=== PATIENT | male | born 1955 | race Caucasian/White ===

== ENCOUNTER 2018-03-20 11:28 | Inpatient (IN) | payer OTHER ==
[2018-03-20] MEDS ORDERED: SODIUM CHLORIDE 1,000 ML IV STA (12:15)
--- NOTE | 2018-03-20 12:15 | PDOC ---
Attending Attestation - Resident Resident Name: JannethNivia - ED Attending Attestation I have performed the following: I have examined & evaluated the patient, The case was reviewed & discussed with the resident, I agree w/resident's findings & plan, Exceptions are as noted - HPI HPI: 03/20/18 13:13 Patient is a 62M, with PMHx of HIV, depression who presents with multiple episodes of nausea and vomiting this morning. Patients family states that he was fine yesterday but became lethargic and altered today. Patient was diagnosed with HIV 5 years ago. He stopped taking his antiviral meds in 2016 because of his depression. He started taking it again in November but he has not taken his HAART medications for 21 days because it made him become nauseous. denies hx opportinusitic infections. Denies fevers, cp, sob, swelling, rashes, abd pain, LE edema, focal weakness/numbness. Allergies: none Denies EtOH, tobacco, drugs use - Physicial Exam PE: 03/20/18 13:13 agree with resident exam - Medical Decision Making 03/20/18 13:06 62yo M hx HIV (unknown CD4, VL, intermittently on HAART) presents to the ED with AMS and vomiting. Vitals wnl. Pt is AOx1 to name. Remainder of exam non focal. DDx includes but not limited to infecious process vs tox-metabolic vs neurologic. Labs, CTH, EKG, CXR, UA ordered. 03/20/18 18:27 Labs consistent with possible liver dysfunction Pt covered with zosyn CXR and CTAP show PNA CTAP also reveals cirrhosis with varices, and obstructing 6.5mm renal stone in ureter Uro c/s, will see pt Utox +ecstasy - this is likely cause of AMS Pt admitted for further mgmt
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
[2018-03-20] MEDS ORDERED: FOLIC ACID INJECTION - 1 MG, THIAMINE HCL 100 MG, MULTIVIT INJECTION ADULT 10 ML in SOD... IVPB ONE (12:38)
[2018-03-20 13:05] LABS: VENOUS PH 7.41 (7.32-7.42)
[2018-03-20 13:08] LABS: BASO % 3.4 % (0-2.0); EOS % 0.3 % (0-4.5); HEMATOCRIT 37.3 % (35.4-49); HEMOGLOBIN 13.4 GM/dL (11.7-16.9); LYMPH % 12.9 % (8-40); MCHC 35.8 g/dl (32.0-35.9); MEAN CELL VOLUME 100.5 fl (80-96); MONO % 3.1 % (3.8-10.2); NEUT % 80.3 % (42.8-82.8); PLATELET COUNT 82 K/MM3 (134-434); RBC 3.72 M/mm3 (4.00-5.60); RDW 13.4 % (11.9-15.9); WHITE BLOOD COUNT 7.3 K/mm3 (4.0-10.0)
[2018-03-20 13:18] LABS: INR 1.46 (0.82-1.09); PROTHROMBIN TIME (PATIENT) 16.5 SEC (9.7-13.0)
[2018-03-20 13:21] LABS: ACTIVATED PTT 38.8 SECONDS (26.9-34.4)
[2018-03-20 13:33] LABS: ALBUMIN 2.7 g/dl (3.4-5.0); ANION GAP 9 (8-16); BLOOD UREA NITROGEN 20 mg/dL (7-18); CALCIUM 8.1 mg/dL (8.5-10.1); CHLORIDE 109 mmol/L (98-107); CO2 23 mmol/L (21-32); CREATININE 0.8 mg/dL (0.7-1.3); GLUCOSE,RANDOM 110 mg/dL (74-106); PHOSPHOROUS 3.5 mg/dL (2.5-4.9); SGPT/ALT 55 U/L (12-78); SODIUM 141 mmol/L (136-145)
[2018-03-20 13:42] LABS: ALK PHOS 73 U/L (45-117); BILIRUBIN,TOTAL 3.5 mg/dL (0.2-1.0); TOT PROT 7.8 g/dl (6.4-8.2)
[2018-03-20 13:45] LABS: MAGNESIUM 1.7 mg/dL (1.8-2.4); POTASSIUM 4.4 mmol/L (3.5-5.1); SGOT/AST 66 U/L (15-37)
[2018-03-20 14:07] LABS: ACETAMINOPHEN <2.0 ug/mL; SALICYLATE <4.0 mg/dL
[2018-03-20] MEDS ORDERED: PIPERACILLIN/TAZOB 4.5 GM 4.5 GM in DEXTROSE 5%-WATER 100 ML IVPB ONE (14:25)
[2018-03-20] MEDS: VANCOMYCIN 1,500 MG in DEXTROSE 5%-WATER - 250 ML IVPB ONE ×2 (14:32→15:32)
[2018-03-20] MEDS ORDERED: PIPERACILLIN/TAZOB 4.5 GM 4.5 GM/100 ML BAG IVPB ONE (14:46)
[2018-03-20] MEDS ORDERED: LORazepam 2 MG/ML SDV VIAL ONE (14:58)
[2018-03-20] MEDS ORDERED: VANCOMYCIN 1,500 MG in DEXTROSE 5%-WATER - 500 ML IVPB ONE (15:00)
[2018-03-20 15:41] LABS: URINE APPEARANCE CLEAR; URINE BILIRUBIN NEGATIVE (<2.0 mg/dL); URINE COLOR DKYELLOW; URINE GLUCOSE (UA) NEGATIVE (NEGATIVE); URINE KETONE NEGATIVE (NEGATIVE); URINE LEUK ESTERASE NEGATIVE (NEGATIVE); URINE NITRITE NEGATIVE (NEGATIVE); URINE PROTEIN NEGATIVE (NEGATIVE); URINE UROBILINOGEN 4.0 E.U/dl mg/dL (0.2-1.0)
[2018-03-20 15:52] LABS: URINE BACTERIA RARE /hpf (NONE SEEN)
[2018-03-20 16:14] LABS: COCAINE, UR NEGATIVE ng/ml (CUTOFF=300); OPIATES, URI NEGATIVE ng/ml (CUTOFF=300); PHENCYCLIDINE,URINE NEGATIVE ng/ml (CUTOFF=25); URINE AMPHETAMINES NEGATIVE ng/ml (CUTOFF=500); URINE BARBITURATES NEGATIVE ng/ml (CUTOFF=200); URINE BENZODIAZEPINES NEGATIVE ng/ml (CUTOFF=200)
[2018-03-20 16:15] LABS: METHADONE, UR NEGATIVE ng/ml (CUTOFF=300)
[2018-03-20] MEDS ORDERED: PT OWN MED DRAWER 7, Y5N ONE (16:44)
--- NOTE | 2018-03-20 18:21 | PN ---
Teaching Attending Note Name of Resident: Sadi Segura ATTENDING PHYSICIAN STATEMENT I saw and evaluated the patient. I reviewed the resident's note and discussed the case with the resident. I agree with the resident's findings and plan as documented. SUBJECTIVE: Patient is a 62yo male with PMHx of HIV, depression on Wellbutryn who presents to ED with having nausea and vomiting this morning. A sper patient's sister , she cooked last night and they al ate the same food without any complications with the rest. Patient was diagnosed with HIV (5yrs ago). As per family patient became lethargic and altered since this morning. He stopped taking his antiviral meds in 2016 because of his depression. He started taking it again in November but he has not taken his HAART medications for 21 days because it made him become nauseous. Asper sister patient became agitated and was given an anxiolytic while in ED. OBJECTIVE: Vital Signs Temperature 98.6 F 03/20/18 17:15 Pulse Rate 82 03/20/18 17:15 Respiratory Rate 16 03/20/18 17:15 Blood Pressure 149/108 03/20/18 17:15 O2 Sat by Pulse Oximetry (%) 97 03/20/18 17:15 CBCD WBC 7.3 K/mm3 (4.0-10.0) 03/20/18 12:21 RBC 3.72 M/mm3 (4.00-5.60) L 03/20/18 12:21 Hgb 13.4 GM/dL (11.7-16.9) 03/20/18 12:21 Hct 37.3 % (35.4-49) 03/20/18 12:21 MCV 100.5 fl (80-96) H 03/20/18 12:21 MCHC 35.8 g/dl (32.0-35.9) 03/20/18 12:21 RDW 13.4 % (11.9-15.9) 03/20/18 12:21 Plt Count 82 K/MM3 (134-434) L 03/20/18 12:21 MPV 8.0 fl (7.5-11.1) 03/20/18 12:21 CMP Sodium 141 mmol/L (136-145) 03/20/18 12:21 Potassium 4.4 mmol/L (3.5-5.1) 03/20/18 12:21 Chloride 109 mmol/L (98-107) H 03/20/18 12:21 Carbon Dioxide 23 mmol/L (21-32) 03/20/18 12:21 Anion Gap 9 (8-16) 03/20/18 12:21 BUN 20 mg/dL (7-18) H 03/20/18 12:21 Creatinine 0.8 mg/dL (0.7-1.3) 03/20/18 12:21 Creat Clearance w eGFR > 60 (>60) 03/20/18 12:21 Random Glucose 110 mg/dL (74-106) H 03/20/18 12:21 Calcium 8.1 mg/dL (8.5-10.1) L 03/20/18 12:21 Total Bilirubin 3.5 mg/dL (0.2-1.0) H 03/20/18 12:21 AST 66 U/L (15-37) H 03/20/18 12:21 ALT 55 U/L (12-78) 03/20/18 12:21 Alkaline Phosphatase 73 U/L (45-117) 03/20/18 12:21 Total Protein 7.8 g/dl (6.4-8.2) 03/20/18 12:21 Albumin 2.7 g/dl (3.4-5.0) L 03/20/18 12:21 CARDIAC ENZYMES Creatine Kinase 107 IU/L (39-308) 03/20/18 12:21 Troponin I < 0.02 ng/ml (0.00-0.05) 03/20/18 13:00 Urine Test Results Urine Color Dkyellow 03/20/18 15:20 Urine Appearance Clear 03/20/18 15:20 Urine pH 7.0 (5.0-8.0) 03/20/18 15:20 Ur Specific [place] 1.013 (1.001-1.035) 03/20/18 15:20 Urine Protein Negative (NEGATIVE) 03/20/18 15:20 Urine Glucose (UA) Negative (NEGATIVE) 03/20/18 15:20 Urine Ketones Negative (NEGATIVE) 03/20/18 15:20 Urine Blood 1+ (NEGATIVE) H 03/20/18 15:20 Urine Nitrite Negative (NEGATIVE) 03/20/18 15:20 Urine Bilirubin Negative (<2.0 mg/dL) 03/20/18 15:20 Ur Leukocyte Esterase Negative (NEGATIVE) 03/20/18 15:20 Urine Bacteria Rare /hpf (NONE SEEN) 03/20/18 15:20 Laboratory Tests 03/20/18 03/20/18 13:00 15:20 Opiates Screen Negative Methadone Screen Negative Barbiturate Screen Negative Phencyclidine Screen Negative Ur Amphetamines Screen Negative MDMA (Ecstasy) Screen Positive Benzodiazepines Screen Negative Cocaine Screen Negative U Marijuana (THC) Screen Negative Alcohol, Quantitative < 5.0 PE: per resident's note CT of abdomen and pelvis: consolidative opacity in the left lung base, surrounding groundglass attenuation. positive for gallstones. 6.5mm calculus in the proximal right ureter with moderate right hydronephrosis and distention of the renal pelvis. ASSESSMENT AND PLAN: Patient is a 62yo M hx HIV (unknown CD4, VL, intermittently on HAART) presents to the ED with AMS and vomiting. # Acute change of mental status: Id consult , neuro consult , repeat lactic acid level, ammonia level # Left lung opacity: ABx was given earlier today, will get ID to see the patient , patient received vanco and zosyn in ED. # Calculus of 6.5mm , most likly need lithotripsy, was consulted
--- NOTE | 2018-03-20 18:23 | HP ---
CHIEF COMPLAINT: N/V and AMS PCP: Dr. Camille Cotton [phone] HISTORY OF PRESENT ILLNESS: 62yo M with history of HIV (unknown CD4 count; suspected low) and Depression (psychiatric hospitalization at [facility] 3 years ago) who presents to the ED with AMS. HPI is limited due to pt's presentation, however history was taken from brother and sister. Pt was in his normal state of health the afternoon of at his sister's and [id number] house where he ate a dinner. Pt went to bed per normal and upon waking up 03/20/18 he was found to be vomiting and nauseous. Pt's family states he had copious amounts of vomiting first NB/NB and then turning into bilious nonbloody vomit. Pt at this point was of normal mentation, however around noon today he started to become altered and oriented only to self. When pt was helped to the car, his family states he was mostly flaccid and did not exhibit any signs of rigidity. Pt's family states he did not express any signs of abdominal pain, chest pain, diarrhea/constipation, fevers/chills. When pt arrived in the ER he was agitated and willing to punch both medical staff and his family. He received 1mg Ativan in the ER which calmed him down. Currently, pt is alert to tactile stimulus, comfortable sleeping in bed. ER course was notable for: (1) MDMA + in UTox (2) Head CT negative for acute pathology (3) CXR - L cardiac silhouetted density (4) Abdominal CT - LLL airbronchograms suggestive of PNA, thickened GB wall with cholelithiasis (no evidence of cholecystitis), 6.5mm obstructing nephrolithiasis with hydronephrosis (5) NS 1L (6) LA 4.1 (7) Contacted Dr. Butler Recent Travel: None PAST MEDICAL HISTORY: Depression (Requiring psychiatric hospitalization s/p suicide attempt 3 years ago; hospitalized at [facility]) HIV (Stopped taking antivirals in 2016 due to depression; restarted HAART November however noncompliant for past 21 days due to n/v) PAST SURGICAL HISTORY: None Social History: Smoking: None Alcohol: Occasional Drugs: (per family none; however MDMA found in system) Lives with sister and [id number]; independent in ADL's; walks without assistance Family History: Deferred Allergies No Known Allergies Allergy (Verified 03/20/18 11:41) HOME MEDICATIONS: Home Medications Medication Instructions Recorded Bupropion HCl [Bupropion Xl] 150 mg PO DAILY 03/20/18 REVIEW OF SYSTEMS *incomplete due to pt's limited HPI; obtained based on family report* CONSTITUTIONAL: Present: loss of appetite, weight change (12lb in one month) Absent: fever, chills, diaphoresis, malaise HEENT: Absent: rhinorrhea, nasal congestion, throat pain, ear pain CARDIOVASCULAR: Absent: chest pain, syncope, palpitations RESPIRATORY: Absent: cough, shortness of breath, dyspnea with exertion, wheezing GASTROINTESTINAL: Present: nausea, vomiting, Absent: abdominal pain, abdominal distension, diarrhea, constipation, MUSCULOSKELETAL: Absent: myalgia, arthralgia, joint swelling, back pain, muscle rigidity SKIN: Absent: rash, itching, pallor NEUROLOGIC: Present: Mental Status changes Absent: headache, dizziness, unsteady gait, seizure, bladder or bowel incontinence PSYCHIATRIC: Present: Depression Absent: anxiety, *current* suicidal or homicidal ideation PHYSICAL EXAMINATION Vital Signs - 24 hr 03/20/18 03/20/18 03/20/18 11:41 12:56 17:15 Temperature 98.3 F 98.6 F Pulse Rate 80 Pulse Rate [ 82 Left Apical] Respiratory 20 16 Rate Blood Pressure 149/90 Blood Pressure 149/108 [Left Arm] O2 Sat by Pulse 97 97 Oximetry (%) *Limited due to pt's presentation* GENERAL: NAD, sleepy, alert to tactile stimulus, oriented to self and slighly to place (knows he's in hospital, but not which hospital) HEENT: NC/AT, ROMINA, sclera anicteric without injections, MMM (seen when pt yawning) NECK: Soft, no JVD LUNGS: Coarse diminished breath sounds L base > R base. No wheezes, and no crackles. No accessory muscle use. On RA 97% HEART: RRR, normal S1 and S2 without murmur ABDOMEN: Soft, not distended, normoactive bowel sounds, no agitation to palpation, no guarding. No hepatomegaly by percussion MUSCULOSKELETAL: Freely movable limbs without rigidigy of joints. No bony deformities or tenderness. Could not assess CVA tenderness EXTREMITIES: 2+ DP pulses, warm, No peripheral edema. NEUROLOGICAL: Could not assess PSYCHIATRIC: Could not assess. SKIN: Warm, dry, no rashes or lesions noted Laboratory Results - last 24 hr 03/20/18 03/20/18 03/20/18 12:21 12:21 12:21 WBC 7.3 RBC 3.72 L Hgb 13.4 Hct 37.3 MCV 100.5 H MCH 36.0 H MCHC 35.8 RDW 13.4 Plt Count 82 L MPV 8.0 Absolute Neuts (auto) 5.8 Neutrophils % 80.3 Lymphocytes % 12.9 Monocytes % 3.1 L Eosinophils % 0.3 Basophils % 3.4 H Nucleated RBC % 0 PT with INR 16.50 H INR 1.46 H PTT (Actin FS) 38.8 H VBG pH POC VBG pCO2 POC VBG pO2 Mixed VBG HCO3 Sodium 141 Potassium 4.4 Chloride 109 H Carbon Dioxide 23 Anion Gap 9 BUN 20 H Creatinine 0.8 Creat Clearance w eGFR > 60 Random Glucose 110 H Lactic Acid Calcium 8.1 L Phosphorus 3.5 Magnesium 1.7 L Total Bilirubin 3.5 H AST 66 H ALT 55 Alkaline Phosphatase 73 Creatine Kinase 107 CK-MB (CK-2) 2.15 Troponin I Total Protein 7.8 Albumin 2.7 L Vitamin B12 TSH 1.88 Urine Color Urine Appearance Urine pH Ur Specific [place] Urine Protein Urine Glucose (UA) Urine Ketones Urine Blood Urine Nitrite Urine Bilirubin Urine Urobilinogen Ur Leukocyte Esterase Urine WBC (Auto) Urine RBC (Auto) Urine Bacteria Salicylates Opiates Screen Methadone Screen Acetaminophen Barbiturate Screen Phencyclidine Screen Ur Amphetamines Screen MDMA (Ecstasy) Screen Benzodiazepines Screen Cocaine Screen U Marijuana (THC) Screen Alcohol, Quantitative RPR Titer Blood Type Antibody Screen 03/20/18 03/20/18 03/20/18 12:21 12:36 13:00 WBC RBC Hgb Hct MCV MCH MCHC RDW Plt Count MPV Absolute Neuts (auto) Neutrophils % Lymphocytes % Monocytes % Eosinophils % Basophils % Nucleated RBC % PT with INR INR PTT (Actin FS) VBG pH 7.41 POC VBG pCO2 37.0 L POC VBG pO2 30.0 Mixed VBG HCO3 23.0 Sodium Potassium Chloride Carbon Dioxide Anion Gap BUN Creatinine Creat Clearance w eGFR Random Glucose Lactic Acid 4.1 H* Calcium Phosphorus Magnesium Total Bilirubin AST ALT Alkaline Phosphatase Creatine Kinase CK-MB (CK-2) Troponin I Total Protein Albumin Vitamin B12 TSH Urine Color Urine Appearance Urine pH Ur Specific [place] Urine Protein Urine Glucose (UA) Urine Ketones Urine Blood Urine Nitrite Urine Bilirubin Urine Urobilinogen Ur Leukocyte Esterase Urine WBC (Auto) Urine RBC (Auto) Urine Bacteria Salicylates Opiates Screen Methadone Screen Acetaminophen Barbiturate Screen Phencyclidine Screen Ur Amphetamines Screen MDMA (Ecstasy) Screen Benzodiazepines Screen Cocaine Screen U Marijuana (THC) Screen Alcohol, Quantitative RPR Titer Blood Type A POSITIVE Antibody Screen Negative 03/20/18 03/20/18 03/20/18 13:00 13:00 13:00 WBC RBC Hgb Hct MCV MCH MCHC RDW Plt Count MPV Absolute Neuts (auto) Neutrophils % Lymphocytes % Monocytes % Eosinophils % Basophils % Nucleated RBC % PT with INR INR PTT (Actin FS) VBG pH POC VBG pCO2 POC VBG pO2 Mixed VBG HCO3 Sodium Potassium Chloride Carbon Dioxide Anion Gap BUN Creatinine Creat Clearance w eGFR Random Glucose Lactic Acid Calcium Phosphorus Magnesium Total Bilirubin AST ALT Alkaline Phosphatase Creatine Kinase CK-MB (CK-2) Troponin I < 0.02 Total Protein Albumin Vitamin B12 1171 H TSH Urine Color Urine Appearance Urine pH Ur Specific [place] Urine Protein Urine Glucose (UA) Urine Ketones Urine Blood Urine Nitrite Urine Bilirubin Urine Urobilinogen Ur Leukocyte Esterase Urine WBC (Auto) Urine RBC (Auto) Urine Bacteria Salicylates <4.0 Opiates Screen Methadone Screen Acetaminophen <2.0 Barbiturate Screen Phencyclidine Screen Ur Amphetamines Screen MDMA (Ecstasy) Screen Benzodiazepines Screen Cocaine Screen U Marijuana (THC) Screen Alcohol, Quantitative < 5.0 RPR Titer Nonreactive Blood Type Antibody Screen 03/20/18 03/20/18 15:20 15:20 WBC RBC Hgb Hct MCV MCH MCHC RDW Plt Count MPV Absolute Neuts (auto) Neutrophils % Lymphocytes % Monocytes % Eosinophils % Basophils % Nucleated RBC % PT with INR INR PTT (Actin FS) VBG pH POC VBG pCO2 POC VBG pO2 Mixed VBG HCO3 Sodium Potassium Chloride Carbon Dioxide Anion Gap BUN Creatinine Creat Clearance w eGFR Random Glucose Lactic Acid Calcium Phosphorus Magnesium Total Bilirubin AST ALT Alkaline Phosphatase Creatine Kinase CK-MB (CK-2) Troponin I Total Protein Albumin Vitamin B12 TSH Urine Color Dkyellow Urine Appearance Clear Urine pH 7.0 Ur Specific [place] 1.013 Urine Protein Negative Urine Glucose (UA) Negative Urine Ketones Negative Urine Blood 1+ H Urine Nitrite Negative Urine Bilirubin Negative Urine Urobilinogen 4.0 e.u/dl Ur Leukocyte Esterase Negative Urine WBC (Auto) 2 Urine RBC (Auto) 28 Urine Bacteria Rare Salicylates Opiates Screen Negative Methadone Screen Negative Acetaminophen Barbiturate Screen Negative Phencyclidine Screen Negative Ur Amphetamines Screen Negative MDMA (Ecstasy) Screen Positive Benzodiazepines Screen Negative Cocaine Screen Negative U Marijuana (THC) Screen Negative Alcohol, Quantitative RPR Titer Blood Type Antibody Screen ASSESSMENT/PLAN: 1) AMS --likely secondary to MDMA intoxication --s/p Ativan 1mg due to agitation in ER --Low suspicion for serotonin syndrome despite MDMA and Buproprion use --Monitor temperature --Aspiration precautions: HOB elevated 30* --Head CT negative in ER 2) LLL PNA --Possibly aspiration etiology --WBC WNL; no fevers at this point --Blood cultures and urine cultures were sent in ER?; f/u --S/P ER vancomycin 1500mg and Zosyn 4.5gm once --ID consult --Might consider covering with Bactrim in lieu of HIV 3) HIV --Unknown CD4 count, but suspected low with unknown viral count --CD4 count ordered --As above ID consult; pending CD4 count may have to cover for PCP PNA ( Bactrim) --Pt in 2017 stopped HAART therapy 4) Obstructing Nephrolithiasis with hydroneprhosis --Confirmed with CT scan --Dr. Butler consulted --Will likely need stent; ? lithotripsy --IVF - NS@100cc/hr --Holding pain control as pt is altered at the moment 5) Cholithiasis w/o cholecystectomy --Seen incidentally on CT --Monitor LFT's --Will most likely recommend elective procedure once acute conditions are resolved; f/u surgery outpatient 6) Thrombocytopenia --Likely resultant from MDMA use --Monitor --No active signs of bleeding 7) Hyperbilirubinemia --Fractionate with AM labs --Could be elevated due to hepatoxicity from MDMA use --Monitor --No evidence of hemolysis or anemia 8) QTc Prolongation --QTc 507 --Avoid QTc prolonging medications FEN: Fluids: NS@100cc/hr Electrolyte abnormalities: HypoMg (Replete with MgSulfate 1gm) Nutrition: NPO while altered PPX: DVT - Heparin SQ TID; monitor platelets Dispo: Med-surg admit Case discussed with Dr. Branch and Dr. Waylon Segura, DO - PGY-1 Visit type - Emergency Visit Emergency Visit: Yes ED Registration Date: 03/20/18 Care time: The patient presented to the Emergency Department on the above date and was hospitalized for further evaluation of their emergent condition. - New Patient This patient is new to me today: Yes Date on this admission: 03/20/18 - Critical Care Critical Care patient: No Hospitalist Screening - Colonoscopy Questionnaire Colonoscopy Questionnaire: Colonoscopy Questionnaire - Patient: 50 - 75 years old and never had a screening colonoscopy: Unknown History of colon or rectal polyps, or CA: Unknown History of IBD, Crohn's disease or UC: Unknown History of abdominal radiation therapy as a child: Unknown - Relative: 1 with colon or rectal CA, or polyps at age 60 or younger: Unknown Colon or rectal CA diagnosed at age 45 or younger: Unknown Multiple relatives with colon or rectal CA: Unknown - Outcome: Screening Result: Negative Screen
[2018-03-20] MEDS: SODIUM CHLORIDE 1,000 ML IV SCH (18:37)
[2018-03-20] MEDS ORDERED: MAGNESIUM SULF 50% (8.12 MEQ/2 ML-1 GM VIAL) IVPB ONE (19:02)
[2018-03-20] MEDS: MAGNESIUM 1GM/D5W - 1 GM/100 ML IVPB IVPB ONE ×2 (19:30→21:38)
[2018-03-20 22:29] VITALS: BMI 23.8
[2018-03-20] MEDS: THIAMINE HCL 200 MG/2 ML VIAL IVPB SCH (22:40)
[2018-03-21] MEDS: HEPARIN NA (PORCINE) 5,000 UNITS/ML 1ML VIAL SQ SCH ×3 (05:26→21:24)
--- NOTE | 2018-03-21 07:09 | PN ---
Progress Note (short form) - Note Progress Note: ID Difficult history most of which is obtained from chart as patient lethargic and has difficulty waking up Brought from home with history of being HIV positive apparently vomiting with altered mental status and found to have positive tox screen Ecstasy. Given Ativan now lethargic munbles words He has been afebrile CT head neg for acute intracranial pathology. CT abd gall stones kidney stone with hydronephrosis evidence for cirrhosis and incidental finding of LLL infiltrate He is not hypoxic febrile or SOB and we do not know his HIV status re ART or T cells. Selected Entries 03/20/18 22:22 Temperature 98.6 F Pulse Rate 82 Respiratory 18 Rate Blood Pressure 138/68 Weight 161 lb 3 oz Neck Supple Lung Clear Cor S1 S2 RR Abd Soft nontender Ext No CCE Neuro Grossly nonfocal Microbiology Laboratory Tests 03/20/18 03/20/18 03/20/18 12:21 12:21 12:21 WBC 7.3 Hgb 13.4 Hct 37.3 Plt Count 82 L Neutrophils % 80.3 Lymphocytes % 12.9 Monocytes % 3.1 L Basophils % 3.4 H INR 1.46 H BUN 20 H Creatinine 0.8 Lactic Acid Magnesium 1.7 L Total Bilirubin 3.5 H AST 66 H Albumin 2.7 L MDMA (Ecstasy) Screen MDMA & Metabolite Absolute CD4 Bessie RPR Titer 03/20/18 03/20/18 03/20/18 13:00 13:00 15:20 WBC Hgb Hct Plt Count Neutrophils % Lymphocytes % Monocytes % Basophils % INR BUN Creatinine Lactic Acid Magnesium Total Bilirubin AST Albumin MDMA (Ecstasy) Screen Positive MDMA & Metabolite Pending Absolute CD4 Bessie RPR Titer Nonreactive 03/20/18 03/20/18 03/20/18 18:13 20:30 23:00 WBC Hgb Hct Plt Count Neutrophils % Lymphocytes % Monocytes % Basophils % INR BUN Creatinine Lactic Acid 3.6 H* 2.3 H* Magnesium Total Bilirubin AST Albumin MDMA (Ecstasy) Screen MDMA & Metabolite Absolute CD4 Bessie Pending RPR Titer Assessment Alteration of mental status drug use MDMA Metabolic encephalopathy with elevated ammonia level HIV infection Details lacking re ART T cells history Cirrhosis ? alcoholic Hep C Pneumonia Less likely Pneumocystis Not hypoxic not bilateral typical ground glass infiltrates agree aspiration possible Kidney stone Plan Panculture LGA T cells Treat ammonia level Hep C Ab Urology evaluation Unasyn 1.5grs q 6 H Brandi CLANCY Problem List - Problems (1) Cirrhosis Code(s): K74.60 - UNSPECIFIED CIRRHOSIS OF LIVER Qualifiers: Hepatic cirrhosis type: unspecified hepatic cirrhosis Ascites presence: unspecified Qualified Code(s): K74.60 - Unspecified cirrhosis of liver (2) HIV (human immunodeficiency virus infection) Code(s): B20 - HUMAN IMMUNODEFICIENCY VIRUS [HIV] DISEASE (3) Left lower lobe pneumonia Code(s): J18.1 - LOBAR PNEUMONIA, UNSPECIFIED ORGANISM Qualifiers: Pneumonia type: due to unspecified organism Qualified Code(s): J18.1 - Lobar pneumonia, unspecified organism (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
[2018-03-21] MEDS ORDERED: LACTULOSE 20 GM/30 ML UDC (FOR ORAL USE ONLY) PO PRN (07:18)
[2018-03-21 07:51] LABS: CHLORIDE 112 mmol/L (98-107); POTASSIUM 3.4 mmol/L (3.5-5.1); SODIUM 143 mmol/L (136-145)
[2018-03-21 08:01] LABS: BASO % 0.5 % (0-2.0); EOS % 1.7 % (0-4.5); HEMATOCRIT 31.4 % (35.4-49); HEMOGLOBIN 11.5 GM/dL (11.7-16.9); LYMPH % 34.3 % (8-40); MCH 36.3 pg (25.7-33.7); MCHC 36.5 g/dl (32.0-35.9); MEAN CELL VOLUME 99.3 fl (80-96); MEAN PLT VOLUME 8.2 fl (7.5-11.1); MONO % 5.2 % (3.8-10.2); NEUT % 58.3 % (42.8-82.8); PLATELET COUNT 81 K/MM3 (134-434); RBC 3.16 M/mm3 (4.00-5.60); RDW 13.3 % (11.9-15.9)
[2018-03-21 08:04] LABS: ALBUMIN 2.4 g/dl (3.4-5.0); ALK PHOS 63 U/L (45-117); ANION GAP 9 (8-16); BILIRUBIN,TOTAL 3.4 mg/dL (0.2-1.0); BLOOD UREA NITROGEN 13 mg/dL (7-18); CALCIUM 7.6 mg/dL (8.5-10.1); CO2 22 mmol/L (21-32); CREATININE 0.6 mg/dL (0.7-1.3); GLUCOSE,RANDOM 95 mg/dL (74-106); MAGNESIUM 1.7 mg/dL (1.8-2.4); PHOSPHOROUS 2.7 mg/dL (2.5-4.9); SGOT/AST 44 U/L (15-37); SGPT/ALT 44 U/L (12-78); TOT PROT 6.8 g/dl (6.4-8.2)
[2018-03-21] MEDS ORDERED: AMPICILLIN NA/SULBACTAM NA 1.5 GM VIAL ONE ×3 (08:07→21:19)
[2018-03-21] MEDS ORDERED: SODIUM CHLORIDE 100 ML IVPB ONE ×3 (08:07→21:20)
[2018-03-21] MEDS: AMPICILLIN NA/SULBACTAM NA 1.5 GM in SODIUM CHLORIDE 100 ML IVPB SCH ×3 (08:17→21:24)
--- NOTE | 2018-03-21 08:49 | EKG ---
Test Reason : Blood Pressure : / mmHG Vent. Rate : 070 BPM Atrial Rate : 070 BPM P-R Int : 160 ms QRS Dur : 092 ms QT Int : 470 ms P-R-T Axes : 073 063 076 degrees QTc Int : 507 ms NORMAL SINUS RHYTHM PROLONGED QT ABNORMAL ECG NO PREVIOUS ECGS AVAILABLE Confirmed by LASHON ROSARIO MD ([id number]) on 03/21/2018 8:49:25 AM Referred By: Confirmed By:LASHON ROSARIO MD
[2018-03-21] MEDS ORDERED: PNEUMOC 13-VAL CONJ-DIP CRM/PF 0.5 ML DISP.SYRIN IM ONE (10:00)
--- NOTE | 2018-03-21 10:22 | CON.GU ---
Consult Consult Specialty:: Referred by:: ED Reason for Consultation:: ureteral calculus - History of Present Illness Chief Complaint: ureteral calculus History of Present Illness: 62 year old male with altered mental status incidentally found to have a 6mm ureteral stone. he has no related complaints. - History Source History Provided By: Medical Record Limitations to Obtaining History: Intoxication - Past Medical History Renal/: No: Renal Failure, Renal Inusuff, BPH, Cancer, Hematuria, Hemodialysis , Neurogenic Bladder, Renal Calculi, UTI, Other - Smoking History Smoking history: Never smoked Home Medications - Allergies Allergies/Adverse Reactions: Allergies Allergy/AdvReac Type Severity Reaction Status Date / Time No Known Allergies Allergy Verified 03/20/18 11:41 - Home Medications Home Medications: Ambulatory Orders Bupropion HCl [Bupropion Xl] 150 mg PO DAILY 03/20/18 Review of Systems - Review of Systems Genitourinary: reports: No Symptoms Physical Exam- Vital Signs: Vital Signs Temperature 98.2 F 03/21/18 09:00 Pulse Rate 68 03/21/18 09:00 Respiratory Rate 18 03/21/18 09:00 Blood Pressure 116/68 03/21/18 09:00 O2 Sat by Pulse Oximetry (%) 97 03/20/18 17:15 Renal/: No: CVA Tenderness - Left, CVA Tenderness - Right Labs: CBC, BMP 03/21/18 06:00 03/21/18 06:00 Imaging - Results Cat Scan: Report Reviewed Problem List - Problems (1) Right ureteral calculus Assessment/Plan: asymptomatic stone. Would give hydration and flomax. No infection. Code(s): N20.1 - CALCULUS OF URETER
[2018-03-21] MEDS ORDERED: MAGNESIUM SULF 50% (8.12 MEQ/2 ML-1 GM VIAL) IVPB ONE (12:47)
--- NOTE | 2018-03-21 12:48 | PN ---
Physical Exam: SUBJECTIVE: This morning pt sat up for blood draw by product marketing intern and grazed his head against the side rail while laying back down. Night team attended and being that it was witnessed without any signs of trauma and only on SQ heparin for ppx no CT was ordered. Today pt is more alert compared to yesterday however is only oriented to self. He has incomprehensible speech OBJECTIVE: Vital Signs Period Temp Pulse Resp BP Sys/Low Pulse Ox Last 24 Hr 98.2 F-98.8 F 68-82 16-18 116-149/68-108 97 *Limited due to pt's presentation* GENERAL: NAD, sleepy, alert to verbal stimulus, oriented to self and states yes to place, but has incomprehensible speech when answering "where?" HEENT: NC/AT, ROMINA, sclera anicteric without injections, MMM NECK: Soft, no JVD LUNGS: Coarse diminished breath sounds b/l base. No wheezes, and no crackles. No accessory muscle use. On RA 97% HEART: RRR, normal S1 and S2 without murmur ABDOMEN: Soft, not distended, normoactive bowel sounds, no agitation to palpation, no guarding. No hepatomegaly by percussion MUSCULOSKELETAL: Freely movable limbs without rigidigy of joints. EXTREMITIES: 2+ DP pulses, warm, No peripheral edema. NEUROLOGICAL: Could not assess PSYCHIATRIC: Could not assess. SKIN: Warm, dry, no rashes or lesions noted Laboratory Results - last 24 hr 03/20/18 03/20/18 03/20/18 12:21 12:21 12:21 WBC 7.3 RBC 3.72 L Hgb 13.4 Hct 37.3 MCV 100.5 H MCH 36.0 H MCHC 35.8 RDW 13.4 Plt Count 82 L MPV 8.0 Absolute Neuts (auto) 5.8 Neutrophils % 80.3 Lymphocytes % 12.9 Monocytes % 3.1 L Eosinophils % 0.3 Basophils % 3.4 H Nucleated RBC % 0 PT with INR 16.50 H INR 1.46 H PTT (Actin FS) 38.8 H VBG pH POC VBG pCO2 POC VBG pO2 Mixed VBG HCO3 Sodium 141 Potassium 4.4 Chloride 109 H Carbon Dioxide 23 Anion Gap 9 BUN 20 H Creatinine 0.8 Creat Clearance w eGFR > 60 Random Glucose 110 H Lactic Acid Calcium 8.1 L Phosphorus 3.5 Magnesium 1.7 L Total Bilirubin 3.5 H AST 66 H ALT 55 Alkaline Phosphatase 73 Ammonia Creatine Kinase 107 CK-MB (CK-2) 2.15 Troponin I Total Protein 7.8 Albumin 2.7 L Vitamin B12 TSH 1.88 Urine Color Urine Appearance Urine pH Ur Specific [place] Urine Protein Urine Glucose (UA) Urine Ketones Urine Blood Urine Nitrite Urine Bilirubin Urine Urobilinogen Ur Leukocyte Esterase Urine WBC (Auto) Urine RBC (Auto) Urine Bacteria Salicylates Opiates Screen Methadone Screen Acetaminophen Barbiturate Screen Phencyclidine Screen Ur Amphetamines Screen MDMA (Ecstasy) Screen Benzodiazepines Screen Cocaine Screen U Marijuana (THC) Screen Alcohol, Quantitative RPR Titer Blood Type Antibody Screen 03/20/18 03/20/18 03/20/18 12:21 12:36 13:00 WBC RBC Hgb Hct MCV MCH MCHC RDW Plt Count MPV Absolute Neuts (auto) Neutrophils % Lymphocytes % Monocytes % Eosinophils % Basophils % Nucleated RBC % PT with INR INR PTT (Actin FS) VBG pH 7.41 POC VBG pCO2 37.0 L POC VBG pO2 30.0 Mixed VBG HCO3 23.0 Sodium Potassium Chloride Carbon Dioxide Anion Gap BUN Creatinine Creat Clearance w eGFR Random Glucose Lactic Acid 4.1 H* Calcium Phosphorus Magnesium Total Bilirubin AST ALT Alkaline Phosphatase Ammonia Creatine Kinase CK-MB (CK-2) Troponin I Total Protein Albumin Vitamin B12 TSH Urine Color Urine Appearance Urine pH Ur Specific [place] Urine Protein Urine Glucose (UA) Urine Ketones Urine Blood Urine Nitrite Urine Bilirubin Urine Urobilinogen Ur Leukocyte Esterase Urine WBC (Auto) Urine RBC (Auto) Urine Bacteria Salicylates Opiates Screen Methadone Screen Acetaminophen Barbiturate Screen Phencyclidine Screen Ur Amphetamines Screen MDMA (Ecstasy) Screen Benzodiazepines Screen Cocaine Screen U Marijuana (THC) Screen Alcohol, Quantitative RPR Titer Blood Type A POSITIVE Antibody Screen Negative 03/20/18 03/20/18 03/20/18 13:00 13:00 13:00 WBC RBC Hgb Hct MCV MCH MCHC RDW Plt Count MPV Absolute Neuts (auto) Neutrophils % Lymphocytes % Monocytes % Eosinophils % Basophils % Nucleated RBC % PT with INR INR PTT (Actin FS) VBG pH POC VBG pCO2 POC VBG pO2 Mixed VBG HCO3 Sodium Potassium Chloride Carbon Dioxide Anion Gap BUN Creatinine Creat Clearance w eGFR Random Glucose Lactic Acid Calcium Phosphorus Magnesium Total Bilirubin AST ALT Alkaline Phosphatase Ammonia Creatine Kinase CK-MB (CK-2) Troponin I < 0.02 Total Protein Albumin Vitamin B12 1171 H TSH Urine Color Urine Appearance Urine pH Ur Specific [place] Urine Protein Urine Glucose (UA) Urine Ketones Urine Blood Urine Nitrite Urine Bilirubin Urine Urobilinogen Ur Leukocyte Esterase Urine WBC (Auto) Urine RBC (Auto) Urine Bacteria Salicylates <4.0 Opiates Screen Methadone Screen Acetaminophen <2.0 Barbiturate Screen Phencyclidine Screen Ur Amphetamines Screen MDMA (Ecstasy) Screen Benzodiazepines Screen Cocaine Screen U Marijuana (THC) Screen Alcohol, Quantitative < 5.0 RPR Titer Nonreactive Blood Type Antibody Screen 03/20/18 03/20/18 03/20/18 15:20 15:20 18:13 WBC RBC Hgb Hct MCV MCH MCHC RDW Plt Count MPV Absolute Neuts (auto) Neutrophils % Lymphocytes % Monocytes % Eosinophils % Basophils % Nucleated RBC % PT with INR INR PTT (Actin FS) VBG pH POC VBG pCO2 POC VBG pO2 Mixed VBG HCO3 Sodium Potassium Chloride Carbon Dioxide Anion Gap BUN Creatinine Creat Clearance w eGFR Random Glucose Lactic Acid 3.6 H* Calcium Phosphorus Magnesium Total Bilirubin AST ALT Alkaline Phosphatase Ammonia Creatine Kinase CK-MB (CK-2) Troponin I Total Protein Albumin Vitamin B12 TSH Urine Color Dkyellow Urine Appearance Clear Urine pH 7.0 Ur Specific [place] 1.013 Urine Protein Negative Urine Glucose (UA) Negative Urine Ketones Negative Urine Blood 1+ H Urine Nitrite Negative Urine Bilirubin Negative Urine Urobilinogen 4.0 e.u/dl Ur Leukocyte Esterase Negative Urine WBC (Auto) 2 Urine RBC (Auto) 28 Urine Bacteria Rare Salicylates Opiates Screen Negative Methadone Screen Negative Acetaminophen Barbiturate Screen Negative Phencyclidine Screen Negative Ur Amphetamines Screen Negative MDMA (Ecstasy) Screen Positive Benzodiazepines Screen Negative Cocaine Screen Negative U Marijuana (THC) Screen Negative Alcohol, Quantitative RPR Titer Blood Type Antibody Screen 03/20/18 03/20/18 03/20/18 20:30 21:37 23:00 WBC RBC Hgb Hct MCV MCH MCHC RDW Plt Count MPV Absolute Neuts (auto) Neutrophils % Lymphocytes % Monocytes % Eosinophils % Basophils % Nucleated RBC % PT with INR INR PTT (Actin FS) VBG pH POC VBG pCO2 POC VBG pO2 Mixed VBG HCO3 Sodium Potassium Chloride Carbon Dioxide Anion Gap BUN Creatinine Creat Clearance w eGFR Random Glucose Lactic Acid 3.0 H* 2.3 H* Calcium Phosphorus Magnesium Total Bilirubin AST ALT Alkaline Phosphatase Ammonia 141.8 H Creatine Kinase CK-MB (CK-2) Troponin I Total Protein Albumin Vitamin B12 TSH Urine Color Urine Appearance Urine pH Ur Specific [place] Urine Protein Urine Glucose (UA) Urine Ketones Urine Blood Urine Nitrite Urine Bilirubin Urine Urobilinogen Ur Leukocyte Esterase Urine WBC (Auto) Urine RBC (Auto) Urine Bacteria Salicylates Opiates Screen Methadone Screen Acetaminophen Barbiturate Screen Phencyclidine Screen Ur Amphetamines Screen MDMA (Ecstasy) Screen Benzodiazepines Screen Cocaine Screen U Marijuana (THC) Screen Alcohol, Quantitative RPR Titer Blood Type Antibody Screen 03/21/18 03/21/18 06:00 06:00 WBC 6.0 RBC 3.16 L Hgb 11.5 L D Hct 31.4 L D MCV 99.3 H MCH 36.3 H MCHC 36.5 H RDW 13.3 Plt Count 81 L MPV 8.2 Absolute Neuts (auto) 3.5 Neutrophils % 58.3 D Lymphocytes % 34.3 D Monocytes % 5.2 Eosinophils % 1.7 D Basophils % 0.5 Nucleated RBC % 0 PT with INR INR PTT (Actin FS) VBG pH POC VBG pCO2 POC VBG pO2 Mixed VBG HCO3 Sodium 143 Potassium 3.4 L D Chloride 112 H Carbon Dioxide 22 Anion Gap 9 BUN 13 D Creatinine 0.6 L D Creat Clearance w eGFR > 60 Random Glucose 95 Lactic Acid Calcium 7.6 L Phosphorus 2.7 D Magnesium 1.7 L Total Bilirubin 3.4 H AST 44 H D ALT 44 Alkaline Phosphatase 63 Ammonia Creatine Kinase CK-MB (CK-2) Troponin I Total Protein 6.8 Albumin 2.4 L Vitamin B12 TSH Urine Color Urine Appearance Urine pH Ur Specific [place] Urine Protein Urine Glucose (UA) Urine Ketones Urine Blood Urine Nitrite Urine Bilirubin Urine Urobilinogen Ur Leukocyte Esterase Urine WBC (Auto) Urine RBC (Auto) Urine Bacteria Salicylates Opiates Screen Methadone Screen Acetaminophen Barbiturate Screen Phencyclidine Screen Ur Amphetamines Screen MDMA (Ecstasy) Screen Benzodiazepines Screen Cocaine Screen U Marijuana (THC) Screen Alcohol, Quantitative RPR Titer Blood Type Antibody Screen Active Medications Generic Name Dose Route Start Last Admin Trade Name Freq PRN Reason Stop Dose Admin Heparin Sodium (Porcine) 5,000 unit 03/21/18 06:00 03/21/18 05:26 Heparin - SQ 5,000 unit TID KAYLIE Administration Sodium Chloride 1,000 mls @ 100 mls/hr 03/20/18 18:45 03/20/18 18:37 Normal Saline - IV 100 mls/hr ASDIR KAYLIE Administration Ampicillin Sodium/Sulbactam 100 mls @ 200 mls/hr 03/21/18 09:00 03/21/18 08: 17 Sodium 1.5 gm/ Sodium Chloride IVPB 200 mls/hr Q6H-IV KAYLIE Administration Potassium Chloride 10 meq in 100 mls @ 100 mls/hr 03/21/18 13:00 Potassium Chloride 10 Meq Premix Ivpb - IVPB 03/21/18 15:59 Q60M KAYLIE Lactulose 20 gm 03/21/18 07:18 03/21/18 11:07 Cephulac (Oral Use) PO 20 gm TID PRN Administration CONSTIPATION Magnesium Sulfate 2 gm 03/21/18 12:47 Magnesium Sulfate IVPB 03/21/18 12:48 ONCE ONE Thiamine HCl 200 mg 03/20/18 20:00 03/20/18 22:40 Vitamin B1 Injection - IVPB 200 mg DAILY KAYLIE Administration ASSESSMENT/PLAN: 1) AMS --Ammonia resolved at 141 --AMS related to hepatic encephalopathy --Lactulose now if patient doesn't ingest or not responsive to PO intake may have to use UT --Aspiration precautions: HOB elevated 30* --Head CT previously negative --UTOX repeat negative for MDMA --Buproprion has been sometimes linked to false positivity and may be at play here --? if pt was taking cough suppressants prior to admission 2) Cirrhosis --D. Bili 1.5; AST mildly elevated --Noted on CT scan --Dr. Wolfe consulted --Start Rifaximine 550mg PO if able --Continue Lactulose --Will eventually need EGD when stable for variceal assessment --? Overdose due to pt's previous history of suicide attempt --Reportedly not a drinker by family members --Hep C Ab pending 3) LLL PNA --Possibly aspiration etiology --WBC elevated at 17,000; no fevers at this point --Blood and urine culture f/u --ID on board: Unasyn 1.5gm q6h IV; no need for Bactrim coverage at this time. --Lactic acidosis trending down 4) HIV --Unknown CD4 count, but suspected low with unknown viral count --CD4 count pending --Pt in 2017 stopped HAART therapy 5) Obstructing Nephrolithiasis with hydroneprhosis --Confirmed with CT scan --Dr. Butler consulted --Asymptomatic stone --Recommends hydration and flomax 6) Cholithiasis w/o cholecystectomy --Seen incidentally on CT --Monitor LFT's (trending down overall) --Will most likely recommend elective procedure once acute conditions are resolved; f/u surgery outpatient 7) Thrombocytopenia --Likely resultant from cirrhosis --Monitor --No active signs of bleeding 8) QTc Prolongation --QTc 507 --Avoid QTc prolonging medications Of note: Pt clinically improving mental status, Heparin SQ, and witnessed head contact to side rail not warranting CT scan --Please addend nursing note as I recommend no Head CT scan at this point FEN: Fluids: NS@100cc/hr Electrolyte abnormalities: HypoMg (Replete with MgSulfate 2gm), HypoK ( repleted KCl 10mEq x3 bags) Nutrition: NPO while altered PPX: DVT - Heparin SQ TID; monitor platelets Dispo: Med-surg continued Case discussed with Dr. Jose Carlos Segura, DO - IM PGY-1 Visit type - Emergency Visit Emergency Visit: No - New Patient This patient is new to me today: No - Critical Care Critical Care patient: No
[2018-03-21] MEDS ORDERED: KCL 10 MEQ IVPB 10 MEQ/100 ML INFUS.BAG IVPB SCH (13:00)
[2018-03-21] MEDS ORDERED: POTASSIUM CHLORIDE 10 MEQ in SODIUM CHLORIDE 100 ML IVPB SCH (13:15)
[2018-03-21] MEDS: THIAMINE HCL 200 MG/2 ML VIAL IVPB SCH (13:51)
[2018-03-21] MEDS ORDERED: MAGNESIUM SULFATE IN WATER 2 GM/50 ML IVPB IVPB ONE (14:00)
[2018-03-21] MEDS ORDERED: POTASSIUM CHLORIDE 20 MEQ in SODIUM CHLORIDE 250 ML IVPB ONE (14:15)
[2018-03-21] MEDS ORDERED: LACTULOSE 20 GM/30 ML UDC (FOR ORAL USE ONLY) PO ONE (15:00)
--- NOTE | 2018-03-21 15:26 | CON.GI ---
Consult Consult Specialty:: GI Reason for Consultation:: Altered mental status, encephalopathy - History of Present Illness History of Present Illness: Chart reviewed. As per initial encounter: 62yo M with history of HIV (unknown CD4 count; suspected low) and Depression (psychiatric hospitalization at [facility] 3 years ago) who presents to the ED with AMS. HPI is limited due to pt's presentation, however history was taken from brother and sister. Pt was in his normal state of health the afternoon of 03/19/18 at his sister's and brother- in-laws house where he ate a dinner. Pt went to bed per normal and upon waking up 03/20/18 he was found to be vomiting and nauseous. Pt's family states he had copious amounts of vomiting first NB/NB and then turning into bilious nonbloody vomit. Pt at this point was of normal mentation, however around noon today he started to become altered and oriented only to self. When pt was helped to the car, his family states he was mostly flaccid and did not exhibit any signs of rigidity. Pt's family states he did not express any signs of abdominal pain, chest pain, diarrhea/constipation, fevers/chills. When pt arrived in the ER he was agitated and willing to punch both medical staff and his family. He received 1mg Ativan in the ER which calmed him down. Currently, pt is alert to tactile stimulus, comfortable sleeping in bed. ER course was notable for: (1) MDMA + in UTox (2) Head CT negative for acute pathology (3) CXR - L cardiac silhouetted density (4) Abdominal CT - LLL airbronchograms suggestive of PNA, thickened GB wall with cholelithiasis (no evidence of cholecystitis), 6.5mm obstructing nephrolithiasis with hydronephrosis At the time of this encounter unable to obtain history from the patient. Lethargic, abusable, unable to maintain conversation. History from Chart - History Source History Provided By: Medical Record - Past Medical History Renal/: No: Renal Failure, Renal Inusuff, BPH, Cancer, Hematuria, Hemodialysis , Neurogenic Bladder, Renal Calculi, UTI, Other - Smoking History Smoking history: Never smoked Home Medications - Allergies Allergies/Adverse Reactions: Allergies Allergy/AdvReac Type Severity Reaction Status Date / Time No Known Allergies Allergy Verified 03/20/18 11:41 - Home Medications Home Medications: Ambulatory Orders Bupropion HCl [Bupropion Xl] 150 mg PO DAILY 03/20/18 Family Disease History - Family Disease History Family History: Unable to Obtain Physical Exam-GI Vital Signs: Vital Signs Temperature 98.5 F 03/21/18 14:00 Pulse Rate 62 03/21/18 14:00 Respiratory Rate 18 03/21/18 14:00 Blood Pressure 138/72 03/21/18 14:00 O2 Sat by Pulse Oximetry (%) 97 03/20/18 17:15 Constitutional: Yes: No Distress Eyes: Yes: Conjunctiva Clear HENT: Yes: Atraumatic Neck: Yes: Supple Cardiovascular: Yes: Regular Rate and Rhythm Respiratory: Yes: Regular Gastrointestinal Inspection: No: Ascites, Distention ...Auscultate: Yes: Normoactive Bowel Sounds ...Palpate: Yes: Soft. No: Firm/Rigid, Guarding, Tenderness Edema: No Neurological: Yes: Lethargy Labs: CBC, BMP 03/21/18 06:00 03/21/18 06:00 INR, PTT INR 1.46 (0.82-1.09) H 03/20/18 12:21 Laboratory Last Values WBC 6.0 K/mm3 (4.0-10.0) 03/21/18 06:00 RBC 3.16 M/mm3 (4.00-5.60) L 03/21/18 06:00 Hgb 11.5 GM/dL (11.7-16.9) L D 03/21/18 06:00 Hct 31.4 % (35.4-49) L D 03/21/18 06:00 MCV 99.3 fl (80-96) H 03/21/18 06:00 MCH 36.3 pg (25.7-33.7) H 03/21/18 06:00 MCHC 36.5 g/dl (32.0-35.9) H 03/21/18 06:00 RDW 13.3 % (11.9-15.9) 03/21/18 06:00 Plt Count 81 K/MM3 (134-434) L 03/21/18 06:00 MPV 8.2 fl (7.5-11.1) 03/21/18 06:00 Absolute Neuts (auto) 3.5 # 03/21/18 06:00 Neutrophils % 58.3 % (42.8-82.8) D 03/21/18 06:00 Lymphocytes % 34.3 % (8-40) D 03/21/18 06:00 Monocytes % 5.2 % (3.8-10.2) 03/21/18 06:00 Eosinophils % 1.7 % (0-4.5) D 03/21/18 06:00 Basophils % 0.5 % (0-2.0) 03/21/18 06:00 Nucleated RBC % 0 % (0-0) 03/21/18 06:00 PT with INR 16.50 SEC (9.7-13.0) H 03/20/18 12:21 INR 1.46 (0.82-1.09) H 03/20/18 12:21 PTT (Actin FS) 38.8 SECONDS (26.9-34.4) H 03/20/18 12:21 VBG pH 7.41 (7.32-7.42) 03/20/18 12:36 POC VBG pCO2 37.0 mmHg (38-52) L 03/20/18 12:36 POC VBG pO2 30.0 mmHg (28-48) 03/20/18 12:36 Mixed VBG HCO3 23.0 meq/L (19-25) 03/20/18 12:36 Sodium 143 mmol/L (136-145) 03/21/18 06:00 Potassium 3.4 mmol/L (3.5-5.1) L D 03/21/18 06:00 Chloride 112 mmol/L (98-107) H 03/21/18 06:00 Carbon Dioxide 22 mmol/L (21-32) 03/21/18 06:00 Anion Gap 9 (8-16) 03/21/18 06:00 BUN 13 mg/dL (7-18) D 03/21/18 06:00 Creatinine 0.6 mg/dL (0.7-1.3) L D 03/21/18 06:00 Creat Clearance w eGFR > 60 (>60) 03/21/18 06:00 Random Glucose 95 mg/dL (74-106) 03/21/18 06:00 Lactic Acid 2.3 mmol/L (0.0-2.0) H* 03/20/18 23:00 Calcium 7.6 mg/dL (8.5-10.1) L 03/21/18 06:00 Phosphorus 2.7 mg/dL (2.5-4.9) D 03/21/18 06:00 Magnesium 1.7 mg/dL (1.8-2.4) L 03/21/18 06:00 Total Bilirubin 3.4 mg/dL (0.2-1.0) H 03/21/18 06:00 AST 44 U/L (15-37) H D 03/21/18 06:00 ALT 44 U/L (12-78) 03/21/18 06:00 Alkaline Phosphatase 63 U/L (45-117) 03/21/18 06:00 Ammonia 141.8 umol/L (11-32) H 03/20/18 20:30 Creatine Kinase 107 IU/L (39-308) 03/20/18 12:21 CK-MB (CK-2) 2.15 ng/mL (0.5-3.6) 03/20/18 12:21 Troponin I < 0.02 ng/ml (0.00-0.05) 03/20/18 13:00 Total Protein 6.8 g/dl (6.4-8.2) 03/21/18 06:00 Albumin 2.4 g/dl (3.4-5.0) L 03/21/18 06:00 Vitamin B12 1171 pg/ml (180-914) H 03/20/18 13:00 TSH 1.88 uIU/ml (0.358-3.74) 03/20/18 12:21 Urine Color Dkyellow 03/20/18 15:20 Urine Appearance Clear 03/20/18 15:20 Urine pH 7.0 (5.0-8.0) 03/20/18 15:20 Ur Specific [place] 1.013 (1.001-1.035) 03/20/18 15:20 Urine Protein Negative (NEGATIVE) 03/20/18 15:20 Urine Glucose (UA) Negative (NEGATIVE) 03/20/18 15:20 Urine Ketones Negative (NEGATIVE) 03/20/18 15:20 Urine Blood 1+ (NEGATIVE) H 03/20/18 15:20 Urine Nitrite Negative (NEGATIVE) 03/20/18 15:20 Urine Bilirubin Negative (<2.0 mg/dL) 03/20/18 15:20 Urine Urobilinogen 4.0 e.u/dl mg/dL (0.2-1.0) 03/20/18 15:20 Ur Leukocyte Esterase Negative (NEGATIVE) 03/20/18 15:20 Urine WBC (Auto) 2 /hpf (3-5) 03/20/18 15:20 Urine RBC (Auto) 28 /hpf (0-3) 03/20/18 15:20 Urine Bacteria Rare /hpf (NONE SEEN) 03/20/18 15:20 Salicylates <4.0 mg/dL 03/20/18 13:00 Opiates Screen Negative ng/ml (XTSLQC=292) 03/20/18 15:20 Methadone Screen Negative ng/ml (DPLOZJ=484) 03/20/18 15:20 Acetaminophen <2.0 ug/mL 03/20/18 13:00 Barbiturate Screen Negative ng/ml (OIBCAI=800) 03/20/18 15:20 Phencyclidine Screen Negative ng/ml (CUTOFF=25) 03/20/18 15:20 Ur Amphetamines Screen Negative ng/ml (GCRTYR=287) 03/20/18 15:20 MDMA (Ecstasy) Screen Positive ng/ml (BLHGHF=050) 03/20/18 15:20 Benzodiazepines Screen Negative ng/ml (VMEEGD=531) 03/20/18 15:20 Cocaine Screen Negative ng/ml (FEJNAC=093) 03/20/18 15:20 U Marijuana (THC) Screen Negative ng/ml (CUTOFF=50) 03/20/18 15:20 Alcohol, Quantitative < 5.0 mg/dL (0.0-5.0) 03/20/18 13:00 RPR Titer Nonreactive (NONREACTIVE) 03/20/18 13:00 Blood Type A POSITIVE 03/20/18 12:21 Antibody Screen Negative 03/20/18 12:21 Imaging - Results Cat Scan: Report Reviewed Problem List - Problems (1) Altered mental status Code(s): R41.82 - ALTERED MENTAL STATUS, UNSPECIFIED (2) Cirrhosis Code(s): K74.60 - UNSPECIFIED CIRRHOSIS OF LIVER Qualifiers: Hepatic cirrhosis type: unspecified hepatic cirrhosis Ascites presence: unspecified Qualified Code(s): K74.60 - Unspecified cirrhosis of liver (3) Left lower lobe pneumonia Code(s): J18.1 - LOBAR PNEUMONIA, UNSPECIFIED ORGANISM Qualifiers: Pneumonia type: due to unspecified organism Qualified Code(s): J18.1 - Lobar pneumonia, unspecified organism Assessment/Plan A 62F with the above history presents with pulmonary infiltrate and altered mental status. Has underlying liver cirrhosis with PH, but no obvious ascites, SBP, or HRS. No stigmata of recent, or ongoing GI bleeding. Unclear if altered MS is in fact hepatic encephalopathy, or due to etiologies such as drugs, medications, infection. Agree with panculture, Abx to cover PNA, lactulose either PO or ID, rifaximine (if able to take PO). Stop/avoid all non-essential medications, including sedatives. Daily liver chemistry, bili, ALP, PT, INR, CBC. The pt will need EGD for esophageal varices surveillance once acute issues have resolved. Obtain HBV. HCV, HAV serology.
[2018-03-21] MEDS ORDERED: LACTULOSE 20 GM/30 ML UDC (FOR ORAL USE ONLY) PO SCH (17:00)
[2018-03-21 18:27] LABS: COCAINE, UR NEGATIVE ng/ml (CUTOFF=300); METHADONE, UR NEGATIVE ng/ml (CUTOFF=300); OPIATES, URI NEGATIVE ng/ml (CUTOFF=300); PHENCYCLIDINE,URINE NEGATIVE ng/ml (CUTOFF=25); URINE AMPHETAMINES NEGATIVE ng/ml (CUTOFF=500); URINE BARBITURATES NEGATIVE ng/ml (CUTOFF=200); URINE BENZODIAZEPINES NEGATIVE ng/ml (CUTOFF=200)
--- NOTE | 2018-03-21 20:50 | PN ---
Teaching Attending Note Name of Resident: Sadi Segura ATTENDING PHYSICIAN STATEMENT I saw and evaluated the patient. I reviewed the resident's note and discussed the case with the resident. I agree with the resident's findings and plan as documented. SUBJECTIVE: Patient continues to be confused with no acute distress. No BM yet. OBJECTIVE: Vital Signs Temperature 97.4 F L 03/21/18 18:00 Pulse Rate 69 03/21/18 18:00 Respiratory Rate 18 03/21/18 18:00 Blood Pressure 143/89 03/21/18 18:00 O2 Sat by Pulse Oximetry (%) 98 03/21/18 20:24 CBCD WBC 6.0 K/mm3 (4.0-10.0) 03/21/18 06:00 RBC 3.16 M/mm3 (4.00-5.60) L 03/21/18 06:00 Hgb 11.5 GM/dL (11.7-16.9) L D 03/21/18 06:00 Hct 31.4 % (35.4-49) L D 03/21/18 06:00 MCV 99.3 fl (80-96) H 03/21/18 06:00 MCHC 36.5 g/dl (32.0-35.9) H 03/21/18 06:00 RDW 13.3 % (11.9-15.9) 03/21/18 06:00 Plt Count 81 K/MM3 (134-434) L 03/21/18 06:00 MPV 8.2 fl (7.5-11.1) 03/21/18 06:00 CMP Sodium 143 mmol/L (136-145) 03/21/18 06:00 Potassium 3.4 mmol/L (3.5-5.1) L D 03/21/18 06:00 Chloride 112 mmol/L (98-107) H 03/21/18 06:00 Carbon Dioxide 22 mmol/L (21-32) 03/21/18 06:00 Anion Gap 9 (8-16) 03/21/18 06:00 BUN 13 mg/dL (7-18) D 03/21/18 06:00 Creatinine 0.6 mg/dL (0.7-1.3) L D 03/21/18 06:00 Creat Clearance w eGFR > 60 (>60) 03/21/18 06:00 Random Glucose 95 mg/dL (74-106) 03/21/18 06:00 Calcium 7.6 mg/dL (8.5-10.1) L 03/21/18 06:00 Total Bilirubin 3.4 mg/dL (0.2-1.0) H 03/21/18 06:00 AST 44 U/L (15-37) H D 03/21/18 06:00 ALT 44 U/L (12-78) 03/21/18 06:00 Alkaline Phosphatase 63 U/L (45-117) 03/21/18 06:00 Total Protein 6.8 g/dl (6.4-8.2) 03/21/18 06:00 Albumin 2.4 g/dl (3.4-5.0) L 03/21/18 06:00 CARDIAC ENZYMES Creatine Kinase 107 IU/L (39-308) 03/20/18 12:21 Troponin I < 0.02 ng/ml (0.00-0.05) 03/20/18 13:00 Current Medications Generic Name Dose Route Start Last Admin Trade Name Freq PRN Reason Stop Dose Admin Heparin Sodium (Porcine) 5,000 unit 03/21/18 06:00 03/21/18 13:53 Heparin - SQ 5,000 unit TID KAYLIE Administration Sodium Chloride 1,000 mls @ 100 mls/hr 03/20/18 18:45 03/20/18 18:37 Normal Saline - IV 100 mls/hr ASDIR KAYLIE Administration Ampicillin Sodium/Sulbactam 100 mls @ 200 mls/hr 03/21/18 09:00 03/21/18 15: 40 Sodium 1.5 gm/ Sodium Chloride IVPB 200 mls/hr Q6H-IV KAYLIE Administration Lactulose 30 gm 03/21/18 22:00 Cephulac (Oral Use) PO TID KAYLIE Rifaximin 550 mg 03/21/18 22:00 Xifaxan - PO BID KAYLIE Thiamine HCl 200 mg 03/20/18 20:00 03/21/18 13:51 Vitamin B1 Injection - IVPB 200 mg DAILY KAYLIE Administration Home Medications Medication Instructions Recorded Bupropion HCl [Bupropion Xl] 150 mg PO DAILY 03/20/18 PE: per resident's note CT of abdomen and pelvis: consolidative opacity in the left lung base, surrounding groundglass attenuation. positive for gallstones. 6.5mm calculus in the proximal right ureter with moderate right hydronephrosis and distention of the renal pelvis. ASSESSMENT AND PLAN: Patient is a 62yo M hx HIV (unknown CD4, VL, intermittently on HAART) presents to the ED with AMS and vomiting. # Acute change of mental status continues : Id consult , neuro consult , elevated ammonia level of 140's #Metabolic encephalopathy with elevated ammonia level # Left lung opacity: ABx was given earlier today, will get ID to see the patient , patient received vanco and zosyn in ED. # Calculus of 6.5mm , most likly need lithotripsy, was consulted # Left lung opacity: ABx was given earlier today, will get ID to see the patient s/p vanco and zosyn in ED. # Calculus of 6.5mm but patient is asymtomatic most likly need lithotripsy, was consulted. DVt px: heparin
[2018-03-21] MEDS: LACTULOSE 20 GM/30 ML UDC (FOR ORAL USE ONLY) PO SCH (21:24)
[2018-03-21] MEDS: RIFAXIMIN 550 MG TABLET (UD) PO SCH (21:24)
[2018-03-22] MEDS ORDERED: AMPICILLIN NA/SULBACTAM NA 1.5 GM VIAL ONE ×4 (00:50→20:56)
[2018-03-22] MEDS ORDERED: SODIUM CHLORIDE 100 ML IVPB ONE ×4 (00:50→20:56)
[2018-03-22] MEDS: AMPICILLIN NA/SULBACTAM NA 1.5 GM in SODIUM CHLORIDE 100 ML IVPB SCH ×4 (02:59→21:24)
[2018-03-22] MEDS: SODIUM CHLORIDE 1,000 ML IV SCH (03:01)
[2018-03-22] MEDS: HEPARIN NA (PORCINE) 5,000 UNITS/ML 1ML VIAL SQ SCH (05:50)
[2018-03-22] MEDS: LACTULOSE 20 GM/30 ML UDC (FOR ORAL USE ONLY) PO SCH ×3 (05:50→21:24)
--- NOTE | 2018-03-22 06:59 | PN ---
Physical Exam: SUBJECTIVE: Pt is more alert and has coherent speech today. Listens to commands appropriately. Pt still is unware of the date confidently. Asked if he took any cough medications while at home and he reports "what's cough medication?" Still remains sleepy. OBJECTIVE: Vital Signs Period Temp Pulse Resp BP Sys/Low Pulse Ox Last 24 Hr 97.4 F-99.0 F 62-69 18-21 116-143/68-89 98-98 *Limited due to pt's presentation* GENERAL: NAD, sleepy, alert to verbal stimulus, oriented to self and place, but thinks it may be March HEENT: NC/AT, ROMINA, sclera anicteric without injections, MMM NECK: Soft, no JVD LUNGS: Coarse diminished breath sounds b/l base. No wheezes, and no crackles. No accessory muscle use. On RA 97% HEART: RRR, normal S1 and S2 without murmur ABDOMEN: Soft, not distended, normoactive bowel sounds, no agitation to palpation, no guarding. No hepatomegaly by percussion EXTREMITIES: 2+ DP pulses, warm, No peripheral edema. NEUROLOGICAL: Could not assess PSYCHIATRIC: Could not assess. SKIN: Warm, dry, no rashes or lesions noted Laboratory Results - last 24 hr 03/21/18 03/21/18 03/21/18 06:00 06:00 15:30 WBC 6.0 RBC 3.16 L Hgb 11.5 L D Hct 31.4 L D MCV 99.3 H MCH 36.3 H MCHC 36.5 H RDW 13.3 Plt Count 81 L MPV 8.2 Absolute Neuts (auto) 3.5 Neutrophils % 58.3 D Lymphocytes % 34.3 D Monocytes % 5.2 Eosinophils % 1.7 D Basophils % 0.5 Nucleated RBC % 0 Sodium 143 Potassium 3.4 L D Chloride 112 H Carbon Dioxide 22 Anion Gap 9 BUN 13 D Creatinine 0.6 L D Creat Clearance w eGFR > 60 Random Glucose 95 Calcium 7.6 L Phosphorus 2.7 D Magnesium 1.7 L Total Bilirubin 3.4 H Direct Bilirubin 1.2 H AST 44 H D ALT 44 Alkaline Phosphatase 63 Total Protein 6.8 Albumin 2.4 L Opiates Screen Methadone Screen Barbiturate Screen Phencyclidine Screen Ur Amphetamines Screen MDMA (Ecstasy) Screen Benzodiazepines Screen Cocaine Screen U Marijuana (THC) Screen 03/21/18 15:45 WBC RBC Hgb Hct MCV MCH MCHC RDW Plt Count MPV Absolute Neuts (auto) Neutrophils % Lymphocytes % Monocytes % Eosinophils % Basophils % Nucleated RBC % Sodium Potassium Chloride Carbon Dioxide Anion Gap BUN Creatinine Creat Clearance w eGFR Random Glucose Calcium Phosphorus Magnesium Total Bilirubin Direct Bilirubin AST ALT Alkaline Phosphatase Total Protein Albumin Opiates Screen Negative Methadone Screen Negative Barbiturate Screen Negative Phencyclidine Screen Negative Ur Amphetamines Screen Negative MDMA (Ecstasy) Screen Negative Benzodiazepines Screen Negative Cocaine Screen Negative U Marijuana (THC) Screen Negative Active Medications Generic Name Dose Route Start Last Admin Trade Name Freq PRN Reason Stop Dose Admin Heparin Sodium (Porcine) 5,000 unit 03/21/18 06:00 03/22/18 05:50 Heparin - SQ 5,000 unit TID KAYLIE Administration Sodium Chloride 1,000 mls @ 100 mls/hr 03/20/18 18:45 03/22/18 03:01 Normal Saline - IV 100 mls/hr ASDIR KAYLIE Administration Ampicillin Sodium/Sulbactam 100 mls @ 200 mls/hr 03/21/18 09:00 03/22/18 02: 59 Sodium 1.5 gm/ Sodium Chloride IVPB 200 mls/hr Q6H-IV KAYLIE Administration Lactulose 30 gm 03/21/18 22:00 03/22/18 05:50 Cephulac (Oral Use) PO 30 gm TID KAYLIE Administration Lactulose 200 gm 03/22/18 07:00 Cephulac (Rectal Use) IL 03/22/18 07:01 ONCE ONE Rifaximin 550 mg 03/21/18 22:00 03/21/18 21:24 Xifaxan - PO 550 mg BID KAYLIE Administration Thiamine HCl 200 mg 03/20/18 20:00 03/21/18 13:51 Vitamin B1 Injection - IVPB 200 mg DAILY KAYLIE Administration ASSESSMENT/PLAN: 1) AMS --Ammonia resolved at 50.5 --AMS related to hepatic encephalopathy --Lactulose now if patient doesn't ingest or not responsive to PO intake may have to use IL --Aspiration precautions: HOB elevated 30* --Head CT previously negative --UTOX repeat negative for MDMA --Buproprion has been sometimes linked to false positivity and may be at play here --? if pt was taking cough suppressants prior to admission 2) Cirrhosis --Noted on CT scan --Dr. Wolfe consulted --Continue Rifaximine 550mg PO if able --No episodes of BM today; will give IL lactulose and continue rest of doses as Oral --Will eventually need EGD when stable for variceal assessment --? Overdose or taking extra doses of Buproprion? --Hep C Ab pending 3) LLL PNA --Possibly aspiration etiology --Blood and urine culture f/u --ID on board: Unasyn 1.5gm q6h IV; no need for Bactrim coverage at this time. --Lactic acidosis trending down 4) HIV --CD4 count 616 --Pt in 2017 stopped HAART therapy 5) Obstructing Nephrolithiasis with hydroneprhosis --Confirmed with CT scan --Dr. Butler consulted --Asymptomatic stone --Recommends hydration and flomax 6) Cholithiasis w/o cholecystectomy --Seen incidentally on CT --Monitor LFT's (trending down overall) --Will most likely recommend elective procedure once acute conditions are resolved; f/u surgery outpatient 7) Thrombocytopenia --Likely resultant from cirrhosis --Monitor --No active signs of bleeding 8) QTc Prolongation --QTc 507 --Avoid QTc prolonging medications FEN: Fluids: NS@100cc/hr Electrolyte abnormalities: HypoK (Kdur 40mEq BID for only 2 doses) Nutrition: NPO while altered; will advance tomorrow morning PPX: DVT - Heparin SQ TID; monitor platelets Dispo: Med-surg continued Case discussed with Dr. Jose Carlos Segura, DO - IM PGY-1 Visit type - Emergency Visit Emergency Visit: No - New Patient This patient is new to me today: No - Critical Care Critical Care patient: No
[2018-03-22] MEDS ORDERED: LACTULOSE 20 GM/30 ML UDC (FOR RECTAL USE ONLY) PR ONE (07:00)
[2018-03-22 07:42] LABS: HEMOGLOBIN 11.9 GM/dL (11.7-16.9); MCH 35.9 pg (25.7-33.7); MCHC 36.1 g/dl (32.0-35.9); MEAN CELL VOLUME 99.3 fl (80-96); PLATELET COUNT 72 K/MM3 (134-434); RBC 3.33 M/mm3 (4.00-5.60); RDW 13.3 % (11.9-15.9); WHITE BLOOD COUNT 4.6 K/mm3 (4.0-10.0)
[2018-03-22 08:07] LABS: CHLORIDE 110 mmol/L (98-107); POTASSIUM 3.4 mmol/L (3.5-5.1); SODIUM 142 mmol/L (136-145)
[2018-03-22 08:54] LABS: ALBUMIN 2.5 g/dl (3.4-5.0); ALK PHOS 66 U/L (45-117); ANION GAP 11 (8-16); BILIRUBIN,TOTAL 3.7 mg/dL (0.2-1.0); BLOOD UREA NITROGEN 12 mg/dL (7-18); CALCIUM 7.7 mg/dL (8.5-10.1); CO2 21 mmol/L (21-32); CREATININE 0.6 mg/dL (0.7-1.3); GLUCOSE,RANDOM 102 mg/dL (74-106); LDH 241 U/L (87-241); MAGNESIUM 1.7 mg/dL (1.8-2.4); PHOSPHOROUS 2.9 mg/dL (2.5-4.9); SGOT/AST 48 U/L (15-37); SGPT/ALT 43 U/L (12-78)
[2018-03-22] MEDS: RIFAXIMIN 550 MG TABLET (UD) PO SCH ×2 (09:37→21:36)
[2018-03-22] MEDS: POTASSIUM CHLORIDE TABS 20 MEQ TABLET.ER (FP) PO SCH ×2 (09:37→21:24)
[2018-03-22] MEDS: THIAMINE HCL 200 MG/2 ML VIAL IVPB SCH (09:38)
[2018-03-22] MEDS: MAGNESIUM OXIDE 400 MG TABLET (FP) PO SCH ×2 (11:59→21:24)
--- NOTE | 2018-03-22 15:25 | PN ---
Teaching Attending Note Name of Resident: Sadi Segura ATTENDING PHYSICIAN STATEMENT I saw and evaluated the patient. I reviewed the resident's note and discussed the case with the resident. I agree with the resident's findings and plan as documented. SUBJECTIVE: OBJECTIVE: Vital Signs Temperature 98.7 F 03/22/18 14:51 Pulse Rate 64 03/22/18 14:51 Respiratory Rate 18 03/22/18 14:51 Blood Pressure 122/73 03/22/18 14:51 O2 Sat by Pulse Oximetry (%) 96 03/22/18 09:00 CBCD WBC 4.6 K/mm3 (4.0-10.0) 03/22/18 07:00 RBC 3.33 M/mm3 (4.00-5.60) L 03/22/18 07:00 Hgb 11.9 GM/dL (11.7-16.9) 03/22/18 07:00 Hct 33.0 % (35.4-49) L 03/22/18 07:00 MCV 99.3 fl (80-96) H 03/22/18 07:00 MCHC 36.1 g/dl (32.0-35.9) H 03/22/18 07:00 RDW 13.3 % (11.9-15.9) 03/22/18 07:00 Plt Count 72 K/MM3 (134-434) L 03/22/18 07:00 MPV 8.0 fl (7.5-11.1) 03/22/18 07:00 CMP Sodium 142 mmol/L (136-145) 03/22/18 07:00 Potassium 3.4 mmol/L (3.5-5.1) L 03/22/18 07:00 Chloride 110 mmol/L (98-107) H 03/22/18 07:00 Carbon Dioxide 21 mmol/L (21-32) 03/22/18 07:00 Anion Gap 11 (8-16) 03/22/18 07:00 BUN 12 mg/dL (7-18) 03/22/18 07:00 Creatinine 0.6 mg/dL (0.7-1.3) L 03/22/18 07:00 Creat Clearance w eGFR > 60 (>60) 03/22/18 07:00 Random Glucose 102 mg/dL (74-106) 03/22/18 07:00 Calcium 7.7 mg/dL (8.5-10.1) L 03/22/18 07:00 Total Bilirubin 3.7 mg/dL (0.2-1.0) H 03/22/18 07:00 AST 48 U/L (15-37) H 03/22/18 07:00 ALT 43 U/L (12-78) 03/22/18 07:00 Alkaline Phosphatase 66 U/L (45-117) 03/22/18 07:00 Total Protein 7.0 g/dl (6.4-8.2) 03/22/18 07:00 Albumin 2.5 g/dl (3.4-5.0) L 03/22/18 07:00 CARDIAC ENZYMES Creatine Kinase 107 IU/L (39-308) 03/20/18 12:21 Troponin I < 0.02 ng/ml (0.00-0.05) 03/20/18 13:00 Current Medications Generic Name Dose Route Start Last Admin Trade Name Freq PRN Reason Stop Dose Admin Sodium Chloride 1,000 mls @ 100 mls/hr 03/20/18 18:45 03/22/18 03:01 Normal Saline - IV 100 mls/hr ASDIR KAYLIE Administration Ampicillin Sodium/Sulbactam 100 mls @ 200 mls/hr 03/21/18 09:00 03/22/18 14: 38 Sodium 1.5 gm/ Sodium Chloride IVPB 200 mls/hr Q6H-IV KAYLIE Administration Lactulose 30 gm 03/21/18 22:00 03/22/18 14:38 Cephulac (Oral Use) PO 30 gm TID KAYLIE Administration Magnesium Oxide 400 mg 03/22/18 11:15 03/22/18 11:59 Mag-Ox - PO 03/22/18 22:01 400 mg BID KAYLIE Administration Potassium Chloride 40 meq 03/22/18 10:00 03/22/18 09:37 K-Dur - PO 40 meq BID KAYLIE Administration Rifaximin 550 mg 03/21/18 22:00 03/22/18 09:37 Xifaxan - PO 550 mg BID KAYLIE Administration Thiamine HCl 200 mg 03/20/18 20:00 03/22/18 09:38 Vitamin B1 Injection - IVPB 200 mg DAILY KAYLIE Administration Home Medications Medication Instructions Recorded Bupropion HCl [Bupropion Xl] 150 mg PO DAILY 03/20/18 Laboratory Tests 03/20/18 03/21/18 03/22/18 20:30 15:45 07:00 Ammonia 141.8 H 50.5 H Opiates Screen Negative Methadone Screen Negative Barbiturate Screen Negative Phencyclidine Screen Negative Ur Amphetamines Screen Negative MDMA (Ecstasy) Screen Negative Benzodiazepines Screen Negative Cocaine Screen Negative U Marijuana (THC) Screen Negative PE: per resident's note CT of abdomen and pelvis: consolidative opacity in the left lung base, surrounding groundglass attenuation. positive for gallstones. 6.5mm calculus in the proximal right ureter with moderate right hydronephrosis and distention of the renal pelvis. ASSESSMENT AND PLAN: Patient is a 62yo M hx HIV (unknown CD4, VL, intermittently on HAART) presents to the ED with AMS and vomiting. # Acute change of mental status improving with elevated ammonia level 140's --- > in 50s today trending down , is on 30gm tid #Metabolic encephalopathy with elevated ammonia level improving , unknown cause , on Rifaximib now # Left lung opacity: ABx was given earlier today, On Unasyn IV continue , ID on the case. patient received vanco and zosyn in ED. # Calculus of 6.5mm , most likly need lithotripsy, was consulted # Left lung opacity with hx of Hiv doubt is PCP , since patient is not hypoxic , placed on IV Unasyn as per ID. # Calculus of 6.5mm but patient is asymtomatic most likly need lithotripsy, was consulted. DVt px: heparin discontinued since Platelets are dropping , SCds now.
--- NOTE | 2018-03-22 17:21 | PN ---
<Lionel Wolfe - Last Filed: 03/22/18 18:09> Progress Note, Physician - Current Medication List Current Medications: Active Medications Sodium Chloride (Normal Saline -) 1,000 mls @ 100 mls/hr IV ASDIR [facility] Last Admin: 03/22/18 03:01 Dose: 100 mls/hr Ampicillin Sodium/Sulbactam (Sodium 1.5 gm/ Sodium Chloride) 100 mls @ 200 mls/ hr IVPB Q6H-IV KAYLIE Last Admin: 03/22/18 14:38 Dose: 200 mls/hr Lactulose (Cephulac (Oral Use)) 30 gm PO TID [facility] Last Admin: 03/22/18 14:38 Dose: 30 gm Magnesium Oxide (Mag-Ox -) 400 mg PO BID [facility] Stop: 03/22/18 22:01 Last Admin: 03/22/18 11:59 Dose: 400 mg Potassium Chloride (K-Dur -) 40 meq PO BID [facility] Last Admin: 03/22/18 09:37 Dose: 40 meq Rifaximin (Xifaxan -) 550 mg PO BID [facility] Last Admin: 03/22/18 09:37 Dose: 550 mg Thiamine HCl (Vitamin B1 Injection -) 200 mg IVPB DAILY [facility] Last Admin: 03/22/18 09:38 Dose: 200 mg - Objective Vital Signs: Vital Signs Temperature 98.7 F 03/22/18 14:51 Pulse Rate 64 03/22/18 14:51 Respiratory Rate 18 03/22/18 14:51 Blood Pressure 122/73 03/22/18 14:51 O2 Sat by Pulse Oximetry (%) 96 03/22/18 09:00 Labs: CBC, BMP 03/22/18 07:00 03/22/18 07:00 INR, PTT INR 1.46 (0.82-1.09) H 03/20/18 12:21 Problem List - Problems (1) Altered mental status Code(s): R41.82 - ALTERED MENTAL STATUS, UNSPECIFIED (2) Cirrhosis Code(s): K74.60 - UNSPECIFIED CIRRHOSIS OF LIVER Qualifiers: (3) Left lower lobe pneumonia Code(s): J18.1 - LOBAR PNEUMONIA, UNSPECIFIED ORGANISM Qualifiers: <Fariba Milligan - Last Filed: 03/24/18 12:23> Progress Note, Physician History of Present Illness: Patient seen and examined by me at bedside. No overnight events noted. Patient reports he had two large bowel movements confirmed by RN. Patient is mildly confused. Otherwise, denies fever, chills, nausea, vomiting, abdominal pain, chest pain, palpitations, shortness of breath, headache. - Current Medication List Current Medications: Active Medications Sodium Chloride (Normal Saline -) 1,000 mls @ 100 mls/hr IV ASDIR [facility] Last Admin: 03/22/18 03:01 Dose: 100 mls/hr Ampicillin Sodium/Sulbactam (Sodium 1.5 gm/ Sodium Chloride) 100 mls @ 200 mls/ hr IVPB Q6H-IV [facility] Last Admin: 03/22/18 14:38 Dose: 200 mls/hr Lactulose (Cephulac (Oral Use)) 30 gm PO TID [facility] Last Admin: 03/22/18 14:38 Dose: 30 gm Magnesium Oxide (Mag-Ox -) 400 mg PO BID [facility] Stop: 03/22/18 22:01 Last Admin: 03/22/18 11:59 Dose: 400 mg Potassium Chloride (K-Dur -) 40 meq PO BID [facility] Last Admin: 03/22/18 09:37 Dose: 40 meq Rifaximin (Xifaxan -) 550 mg PO BID [facility] Last Admin: 03/22/18 09:37 Dose: 550 mg Thiamine HCl (Vitamin B1 Injection -) 200 mg IVPB DAILY [facility] Last Admin: 03/22/18 09:38 Dose: 200 mg - Objective Vital Signs: Vital Signs Temperature 98.7 F 03/22/18 14:51 Pulse Rate 64 03/22/18 14:51 Respiratory Rate 18 03/22/18 14:51 Blood Pressure 122/73 03/22/18 14:51 O2 Sat by Pulse Oximetry (%) 96 03/22/18 09:00 Constitutional: Yes: No Distress, Calm. No: Anxious, Diaphoresis, Moderate Distress, Pallor Eyes: Yes: WNL, Conjunctiva Clear, PERRL. No: Sclera Icterus Neck: Yes: WNL, Supple, Trachea Midline. No: Lymphadenopathy Cardiovascular: Yes: WNL, Regular Rate and Rhythm, S1, S2. No: Tachycardia, JVD Respiratory: Yes: WNL, Regular, CTA Bilaterally. No: Accessory Muscle Use, Rales, Rhonchi Gastrointestinal: Yes: WNL, Normal Bowel Sounds, Soft. No: Ascites, Distention , Tenderness Edema: No Neurological: Yes: WNL, Alert, Confusion. No: Facial Droop, Lethargy Labs: CBC, BMP 03/22/18 07:00 03/22/18 07:00 INR, PTT INR 1.46 (0.82-1.09) H 03/20/18 12:21 03/22/18 03/22/18 07:00 07:00 Total Bilirubin 3.7 H AST 48 H ALT 43 Alkaline Phosphatase 66 Ammonia 50.5 H Problem List - Problems (1) Altered mental status Code(s): R41.82 - ALTERED MENTAL STATUS, UNSPECIFIED (2) Cholelithiasis Code(s): K80.20 - CALCULUS OF GALLBLADDER W/O CHOLECYSTITIS W/O OBSTRUCTION Qualifiers: Cholelithiasis location: gallbladder Cholecystitis presence: without cholecystitis Biliary obstruction: with biliary obstruction Qualified Code(s ): K80.21 - Calculus of gallbladder without cholecystitis with obstruction (3) Cirrhosis Code(s): K74.60 - UNSPECIFIED CIRRHOSIS OF LIVER Qualifiers: Hepatic cirrhosis type: unspecified hepatic cirrhosis Ascites presence: unspecified Qualified Code(s): K74.60 - Unspecified cirrhosis of liver (4) HIV (human immunodeficiency virus infection) Code(s): B20 - HUMAN IMMUNODEFICIENCY VIRUS [HIV] DISEASE (5) Left lower lobe pneumonia Code(s): J18.1 - LOBAR PNEUMONIA, UNSPECIFIED ORGANISM Qualifiers: Pneumonia type: due to unspecified organism Qualified Code(s): J18.1 - Lobar pneumonia, unspecified organism Impression/Plan Impression/Plan: Patient more awake and alert today with improvement in mental status Degree of hepatic encephalopathy is not based on Ammonia levels but will need to continue Lactulose and titrate to 4-5 bowel movements daily. Will need to continue Rifaximin PO. Continue daily hepatic panel and coags. Once acute issues resolve will perform EGD to rule out esophageal varices. Hepatitis panel pending. Avoid sedatives. Visit type - Emergency Visit Emergency Visit: Yes ED Registration Date: 03/20/18 Care time: The patient presented to the Emergency Department on the above date and was hospitalized for further evaluation of their emergent condition. - New Patient This patient is new to me today: Yes Date on this admission: 03/22/18 - Critical Care Critical Care patient: No
--- NOTE | 2018-03-22 18:11 | PN ---
Progress Note, Physician History of Present Illness: Awake in bed Appears mildly confused No complaints Denies chest pain/ dyspnea/ cough No c/o fever/ chills - Current Medication List Current Medications: Active Medications Sodium Chloride (Normal Saline -) 1,000 mls @ 100 mls/hr IV ASDIR [facility] Last Admin: 03/22/18 03:01 Dose: 100 mls/hr Ampicillin Sodium/Sulbactam (Sodium 1.5 gm/ Sodium Chloride) 100 mls @ 200 mls/ hr IVPB Q6H-IV KAYLIE Last Admin: 03/22/18 14:38 Dose: 200 mls/hr Lactulose (Cephulac (Oral Use)) 30 gm PO TID [facility] Last Admin: 03/22/18 14:38 Dose: 30 gm Magnesium Oxide (Mag-Ox -) 400 mg PO BID [facility] Stop: 03/22/18 22:01 Last Admin: 03/22/18 11:59 Dose: 400 mg Potassium Chloride (K-Dur -) 40 meq PO BID [facility] Last Admin: 03/22/18 09:37 Dose: 40 meq Rifaximin (Xifaxan -) 550 mg PO BID [facility] Last Admin: 03/22/18 09:37 Dose: 550 mg Thiamine HCl (Vitamin B1 Injection -) 200 mg IVPB DAILY [facility] Last Admin: 03/22/18 09:38 Dose: 200 mg - Objective Vital Signs: Vital Signs Temperature 98.7 F 03/22/18 14:51 Pulse Rate 64 03/22/18 14:51 Respiratory Rate 18 03/22/18 14:51 Blood Pressure 122/73 03/22/18 14:51 O2 Sat by Pulse Oximetry (%) 96 03/22/18 09:00 Constitutional: Yes: No Distress Eyes: Yes: Conjunctiva Clear Cardiovascular: Yes: Regular Rate and Rhythm, S1, S2 Respiratory: Yes: CTA Bilaterally Gastrointestinal: Yes: Normal Bowel Sounds, Soft. No: Tenderness Edema: No Labs: CBC, BMP 03/22/18 07:00 03/22/18 07:00 INR, PTT INR 1.46 (0.82-1.09) H 03/20/18 12:21 Assessment/Plan Probable aspiration pneumonia Toxic metabolic encephalopathy HIV + Continue unasyn
[2018-03-23] MEDS ORDERED: AMPICILLIN NA/SULBACTAM NA 1.5 GM VIAL ONE ×4 (02:31→21:32)
[2018-03-23] MEDS ORDERED: SODIUM CHLORIDE 100 ML IVPB ONE ×4 (02:32→21:33)
[2018-03-23] MEDS: AMPICILLIN NA/SULBACTAM NA 1.5 GM in SODIUM CHLORIDE 100 ML IVPB SCH ×4 (02:37→21:38)
[2018-03-23] MEDS: SODIUM CHLORIDE 1,000 ML IV SCH ×2 (02:37→13:31)
[2018-03-23] MEDS: LACTULOSE 20 GM/30 ML UDC (FOR ORAL USE ONLY) PO SCH ×3 (05:56→21:38)
[2018-03-23 07:52] LABS: HEMATOCRIT 31.6 % (35.4-49); HEMOGLOBIN 11.6 GM/dL (11.7-16.9); MCH 36.5 pg (25.7-33.7); MCHC 36.8 g/dl (32.0-35.9); MEAN CELL VOLUME 99.2 fl (80-96); PLATELET COUNT 85 K/MM3 (134-434); RBC 3.18 M/mm3 (4.00-5.60); WHITE BLOOD COUNT 4.9 K/mm3 (4.0-10.0)
[2018-03-23 08:00] LABS: CHLORIDE 110 mmol/L (98-107); POTASSIUM 3.4 mmol/L (3.5-5.1); SODIUM 142 mmol/L (136-145)
[2018-03-23 08:11] LABS: ALBUMIN 2.3 g/dl (3.4-5.0); ALK PHOS 64 U/L (45-117); ANION GAP 10 (8-16); BLOOD UREA NITROGEN 12 mg/dL (7-18); CALCIUM 7.3 mg/dL (8.5-10.1); CO2 22 mmol/L (21-32); CREATININE 0.6 mg/dL (0.7-1.3); GLUCOSE,RANDOM 87 mg/dL (74-106); MAGNESIUM 1.7 mg/dL (1.8-2.4); PHOSPHOROUS 3.3 mg/dL (2.5-4.9); SGOT/AST 40 U/L (15-37); SGPT/ALT 39 U/L (12-78); TOT PROT 6.6 g/dl (6.4-8.2)
[2018-03-23] MEDS ORDERED: MAGNESIUM OXIDE 400 MG TABLET (FP) PO ONE (08:41)
[2018-03-23] MEDS ORDERED: PT OWN MED DRAWER 7, Y5N ONE (09:57)
[2018-03-23] MEDS: POTASSIUM CHLORIDE TABS 20 MEQ TABLET.ER (FP) PO SCH ×2 (10:05→21:39)
[2018-03-23] MEDS: RIFAXIMIN 550 MG TABLET (UD) PO SCH ×2 (10:05→21:39)
[2018-03-23] MEDS: THIAMINE HCL 200 MG/2 ML VIAL IVPB SCH (10:08)
--- NOTE | 2018-03-23 10:41 | PN ---
Progress Note, Physician History of Present Illness: Awake and alert. No events. Comfortable. - Current Medication List Current Medications: Active Medications Sodium Chloride (Normal Saline -) 1,000 mls @ 100 mls/hr IV ASDIR [facility] Last Admin: 03/23/18 02:37 Dose: 100 mls/hr Ampicillin Sodium/Sulbactam (Sodium 1.5 gm/ Sodium Chloride) 100 mls @ 200 mls/ hr IVPB Q6H-IV KAYLIE Last Admin: 03/23/18 08:54 Dose: 200 mls/hr Lactulose (Cephulac (Oral Use)) 30 gm PO TID [facility] Last Admin: 03/23/18 05:56 Dose: 30 gm Potassium Chloride (K-Dur -) 40 meq PO BID [facility] Stop: 03/23/18 22:01 Last Admin: 03/23/18 10:05 Dose: 40 meq Rifaximin (Xifaxan -) 550 mg PO BID [facility] Last Admin: 03/23/18 10:05 Dose: 550 mg Thiamine HCl (Vitamin B1 Injection -) 200 mg IVPB DAILY [facility] Last Admin: 03/23/18 10:08 Dose: 200 mg - Objective Vital Signs: Vital Signs Temperature 98.9 F 03/23/18 05:55 Pulse Rate 65 03/23/18 05:55 Respiratory Rate 20 03/23/18 05:55 Blood Pressure 127/71 03/23/18 05:55 O2 Sat by Pulse Oximetry (%) 96 03/22/18 20:25 Constitutional: Yes: No Distress, Calm Eyes: Yes: Conjunctiva Clear HENT: Yes: Atraumatic Neck: Yes: Supple Cardiovascular: Yes: Regular Rate and Rhythm Respiratory: Yes: Regular Gastrointestinal: Yes: Soft. No: Distention, Tenderness, Vomiting Neurological: Yes: Alert, Oriented, Asterixis. No: Lethargy Labs: CBC, BMP 03/23/18 06:00 03/23/18 06:00 INR, PTT INR 1.46 (0.82-1.09) H 03/20/18 12:21 Laboratory Last Values WBC 4.9 K/mm3 (4.0-10.0) 03/23/18 06:00 RBC 3.18 M/mm3 (4.00-5.60) L 03/23/18 06:00 Hgb 11.6 GM/dL (11.7-16.9) L 03/23/18 06:00 Hct 31.6 % (35.4-49) L 03/23/18 06:00 MCV 99.2 fl (80-96) H 03/23/18 06:00 MCH 36.5 pg (25.7-33.7) H 03/23/18 06:00 MCHC 36.8 g/dl (32.0-35.9) H 03/23/18 06:00 RDW 13.0 % (11.9-15.9) 03/23/18 06:00 Plt Count 85 K/MM3 (134-434) L 03/23/18 06:00 MPV 8.0 fl (7.5-11.1) 03/23/18 06:00 Absolute Neuts (auto) 3.5 # 03/21/18 06:00 Absolute Lymphs (auto) 1.9 x10E3/uL (0.7-3.1) 03/20/18 20:30 Neutrophils % 58.3 % (42.8-82.8) D 03/21/18 06:00 Lymphocytes % 34.3 % (8-40) D 03/21/18 06:00 Monocytes % 5.2 % (3.8-10.2) 03/21/18 06:00 Eosinophils % 1.7 % (0-4.5) D 03/21/18 06:00 Basophils % 0.5 % (0-2.0) 03/21/18 06:00 Nucleated RBC % 0 % (0-0) 03/21/18 06:00 Lymphocytes 25 % (Not Estab.) 03/20/18 20:30 Nucleated RBCs TNP 03/20/18 20:30 PT with INR 16.50 SEC (9.7-13.0) H 03/20/18 12:21 INR 1.46 (0.82-1.09) H 03/20/18 12:21 PTT (Actin FS) 38.8 SECONDS (26.9-34.4) H 03/20/18 12:21 VBG pH 7.41 (7.32-7.42) 03/20/18 12:36 POC VBG pCO2 37.0 mmHg (38-52) L 03/20/18 12:36 POC VBG pO2 30.0 mmHg (28-48) 03/20/18 12:36 Mixed VBG HCO3 23.0 meq/L (19-25) 03/20/18 12:36 Sodium 142 mmol/L (136-145) 03/23/18 06:00 Potassium 3.4 mmol/L (3.5-5.1) L 03/23/18 06:00 Chloride 110 mmol/L (98-107) H 03/23/18 06:00 Carbon Dioxide 22 mmol/L (21-32) 03/23/18 06:00 Anion Gap 10 (8-16) 03/23/18 06:00 BUN 12 mg/dL (7-18) 03/23/18 06:00 Creatinine 0.6 mg/dL (0.7-1.3) L 03/23/18 06:00 Creat Clearance w eGFR > 60 (>60) 03/23/18 06:00 Random Glucose 87 mg/dL (74-106) 03/23/18 06:00 Lactic Acid 1.9 mmol/L (0.0-2.0) 03/22/18 07:00 Calcium 7.3 mg/dL (8.5-10.1) L 03/23/18 06:00 Phosphorus 3.3 mg/dL (2.5-4.9) 03/23/18 06:00 Magnesium 1.7 mg/dL (1.8-2.4) L 03/23/18 06:00 Total Bilirubin 4.0 mg/dL (0.2-1.0) H 03/23/18 06:00 Direct Bilirubin 1.2 mg/dL (0.0-0.2) H 03/21/18 15:30 AST 40 U/L (15-37) H 03/23/18 06:00 ALT 39 U/L (12-78) 03/23/18 06:00 Alkaline Phosphatase 64 U/L (45-117) 03/23/18 06:00 Ammonia 39.3 umol/L (11-32) H 03/23/18 06:00 LD Total 241 U/L (87-241) 03/22/18 07:00 Creatine Kinase 107 IU/L (39-308) 03/20/18 12:21 CK-MB (CK-2) 2.15 ng/mL (0.5-3.6) 03/20/18 12:21 Troponin I < 0.02 ng/ml (0.00-0.05) 03/20/18 13:00 Total Protein 6.6 g/dl (6.4-8.2) 03/23/18 06:00 Albumin 2.3 g/dl (3.4-5.0) L 03/23/18 06:00 Vitamin B12 1171 pg/ml (180-914) H 03/20/18 13:00 TSH 1.88 uIU/ml (0.358-3.74) 03/20/18 12:21 Urine Color Dkyellow 03/20/18 15:20 Urine Appearance Clear 03/20/18 15:20 Urine pH 7.0 (5.0-8.0) 03/20/18 15:20 Ur Specific [place] 1.013 (1.001-1.035) 03/20/18 15:20 Urine Protein Negative (NEGATIVE) 03/20/18 15:20 Urine Glucose (UA) Negative (NEGATIVE) 03/20/18 15:20 Urine Ketones Negative (NEGATIVE) 03/20/18 15:20 Urine Blood 1+ (NEGATIVE) H 03/20/18 15:20 Urine Nitrite Negative (NEGATIVE) 03/20/18 15:20 Urine Bilirubin Negative (<2.0 mg/dL) 03/20/18 15:20 Urine Urobilinogen 4.0 e.u/dl mg/dL (0.2-1.0) 03/20/18 15:20 Ur Leukocyte Esterase Negative (NEGATIVE) 03/20/18 15:20 Urine WBC (Auto) 2 /hpf (3-5) 03/20/18 15:20 Urine RBC (Auto) 28 /hpf (0-3) 03/20/18 15:20 Urine Bacteria Rare /hpf (NONE SEEN) 03/20/18 15:20 Salicylates <4.0 mg/dL 03/20/18 13:00 Opiates Screen Negative ng/ml (ZERUOL=094) 03/21/18 15:45 Methadone Screen Negative ng/ml (AYICEA=082) 03/21/18 15:45 Acetaminophen <2.0 ug/mL 03/20/18 13:00 Barbiturate Screen Negative ng/ml (QQNQLR=387) 03/21/18 15:45 Phencyclidine Screen Negative ng/ml (CUTOFF=25) 03/21/18 15:45 Ur Amphetamines Screen Negative ng/ml (XUNYJG=184) 03/21/18 15:45 MDMA (Ecstasy) Screen Negative ng/ml (JQDBNJ=660) 03/21/18 15:45 Benzodiazepines Screen Negative ng/ml (OUPZQH=281) 03/21/18 15:45 Cocaine Screen Negative ng/ml (CJJMKN=147) 03/21/18 15:45 U Marijuana (THC) Screen Negative ng/ml (CUTOFF=50) 03/21/18 15:45 Alcohol, Quantitative < 5.0 mg/dL (0.0-5.0) 03/20/18 13:00 Absolute CD3 Count 1720 /uL (622-2402) 03/20/18 20:30 % CD3+ Lymphocytes 90.5 % (57.5-86.2) H 03/20/18 20:30 Absolute CD4 Rogers 616 /uL (359-1519) 03/20/18 20:30 % CD4+ Lymphocyte 32.4 % (30.8-58.5) 03/20/18 20:30 CD4/CD8 Ratio 0.55 (0.92-3.72) L 03/20/18 20:30 % CD8+ Lymphocyte 58.8 % (12.0-35.5) H 03/20/18 20:30 Absolute CD8 Count 1117 /uL (109-897) H 03/20/18 20:30 RPR Titer Nonreactive (NONREACTIVE) 03/20/18 13:00 Blood Type A POSITIVE 03/20/18 12:21 Antibody Screen Negative 03/20/18 12:21 Problem List - Problems (1) Altered mental status Code(s): R41.82 - ALTERED MENTAL STATUS, UNSPECIFIED (2) Cirrhosis Code(s): K74.60 - UNSPECIFIED CIRRHOSIS OF LIVER Qualifiers: Hepatic cirrhosis type: unspecified hepatic cirrhosis Ascites presence: unspecified Qualified Code(s): K74.60 - Unspecified cirrhosis of liver (3) Left lower lobe pneumonia Code(s): J18.1 - LOBAR PNEUMONIA, UNSPECIFIED ORGANISM Qualifiers: Pneumonia type: due to unspecified organism Qualified Code(s): J18.1 - Lobar pneumonia, unspecified organism Assessment/Plan Continue current care. Avoid all non-essential medications, including sedatives. Daily liver chemistry, bili, ALP, PT, INR, CBC. The pt will need EGD for esophageal varices surveillance once acute issues have resolved. Obtain HBV. HCV, HAV serology.
--- NOTE | 2018-03-23 19:17 | PN ---
Teaching Attending Note Name of Resident: Sadi Segura ATTENDING PHYSICIAN STATEMENT I saw and evaluated the patient. I reviewed the resident's note and discussed the case with the resident. I agree with the resident's findings and plan as documented. SUBJECTIVE: No fever ro chills, denies pain, feels better OBJECTIVE: NAD, knows location and age , not year CV: RRR. Lungs: CTAB Abd ; soft , NT, ND , NL BS Ext: no edema ASSESSMENT AND PLAN: 62 y/o man with h/o HIV, depression , h/o Suicidal attempt and other medical problems who presented with AMS and was found to have hepatic encephalopathy 1- encephalopathy: could be hepatic encephalopathy, vs meds induced. now improved - cont lactulose - avoid sedatives - cont rifaximine - off wellbutrin 2- LLL PNA : likely aspiration : cont unasyn 3- R hydronephrosis : - plan for uro sorto/intervention as his AMS resolved 4- Liver cirrhosis on CT , and esophageal and gastric varices. - needs EGD - check Hepatitis serology - denies alcohol use 5- thrombocytopenia: likely due to liver disease 6- HIV: CD4 616. f/u as out p t dispo: HLOC
--- NOTE | 2018-03-23 22:10 | PN ---
Physical Exam: SUBJECTIVE: Pt alert and orientedx3 today! Pt reports not attempting suicide by overdose. Does not report regularly missing Welbutrin doses or forgetting doses where he could have taken extra doses of Welbutrin. Denies any complaints at this time. OBJECTIVE: Vital Signs Period Temp Pulse Resp BP Sys/Low Pulse Ox Last 24 Hr 97.9 F-99.1 F 61-65 18-20 110-127/59-71 100 GENERAL: NAD, sleepy, alert and oriented x3 HEENT: NC/AT, ROMINA, sclera slgithly icteric at lower portions of eyes without injections, MMM NECK: Soft, no JVD LUNGS: Coarse diminished breath sounds b/l base. No wheezes, and no crackles. No accessory muscle use. On RA 97% HEART: RRR, normal S1 and S2 without murmur ABDOMEN: Soft, not distended, normoactive bowel sounds, no agitation to palpation, no guarding. No hepatomegaly by percussion EXTREMITIES: 2+ DP pulses, warm, No peripheral edema. SKIN: Warm, dry, no rashes or lesions noted Laboratory Results - last 24 hr 03/23/18 03/23/18 03/23/18 06:00 06:00 06:00 WBC 4.9 RBC 3.18 L Hgb 11.6 L Hct 31.6 L MCV 99.2 H MCH 36.5 H MCHC 36.8 H RDW 13.0 Plt Count 85 L MPV 8.0 Sodium 142 Potassium 3.4 L Chloride 110 H Carbon Dioxide 22 Anion Gap 10 BUN 12 Creatinine 0.6 L Creat Clearance w eGFR > 60 Random Glucose 87 Calcium 7.3 L Phosphorus 3.3 Magnesium 1.7 L Total Bilirubin 4.0 H AST 40 H ALT 39 Alkaline Phosphatase 64 Ammonia 39.3 H Total Protein 6.6 Albumin 2.3 L Active Medications Generic Name Dose Route Start Last Admin Trade Name Freq PRN Reason Stop Dose Admin Sodium Chloride 1,000 mls @ 100 mls/hr 03/20/18 18:45 03/23/18 13:31 Normal Saline - IV 100 mls/hr ASDIR KAYLIE Administration Ampicillin Sodium/Sulbactam 100 mls @ 200 mls/hr 03/21/18 09:00 03/23/18 21: 38 Sodium 1.5 gm/ Sodium Chloride IVPB 200 mls/hr Q6H-IV KAYLIE Administration Lactulose 30 gm 03/21/18 22:00 03/23/18 21:38 Cephulac (Oral Use) PO 30 gm TID KAYLIE Administration Rifaximin 550 mg 03/21/18 22:00 03/23/18 21:39 Xifaxan - PO 550 mg BID KAYLIE Administration Thiamine HCl 200 mg 03/20/18 20:00 03/23/18 10:08 Vitamin B1 Injection - IVPB 200 mg DAILY KAYLIE Administration ASSESSMENT/PLAN: 1) Hepatic encephalopathy --Ammonia resolved at 39.3 --AMS related to hepatic encephalopathy --Lactulose 30gm PO TID --Aspiration precautions: HOB elevated 30* --Head CT previously negative --UTOX repeat negative for MDMA --Buproprion has been sometimes linked to false positivity and may be at play here 2) Cirrhosis --Noted on CT scan --Dr. Wolfe consulted --Continue Rifaximine 550mg PO if able --Will eventually need EGD when stable for variceal assessment --Hep B core Ab, IGM ordered for assessment of acute infection --Hep C Ab pending 3) LLL PNA --Possibly aspiration etiology --Blood and urine culture f/u --ID on board: Unasyn 1.5gm q6h IV; no need for Bactrim coverage at this time. --Lactic acidosis trending down 4) HIV --CD4 count 616 --Pt in 2017 stopped HAART therapy 5) Obstructing Nephrolithiasis with hydroneprhosis --Confirmed with CT scan --Dr. Butler consulted --Asymptomatic stone --Recommends hydration and flomax 6) Cholithiasis w/o cholecystectomy --Seen incidentally on CT --Monitor LFT's (trending down overall) --Will most likely recommend elective procedure once acute conditions are resolved; f/u surgery outpatient 7) Thrombocytopenia --Increased from yesterday with heparin discontinued --Likely resultant from cirrhosis --Monitor --No active signs of bleeding 8) QTc Prolongation --QTc 507 --Avoid QTc prolonging medications FEN: Fluids: NS@100cc/hr Electrolyte abnormalities: HypoK, hypoMg (repleted) Nutrition: Regular diet PPX: DVT - Heparin SQ TID; monitor platelets Dispo: Med-surg continued Case discussed with Dr. Natanael Segura, DO - IM PGY-1 Visit type - Emergency Visit Emergency Visit: No - New Patient This patient is new to me today: No - Critical Care Critical Care patient: No
[2018-03-24] MEDS: SODIUM CHLORIDE 1,000 ML IV SCH ×2 (00:50→15:21)
[2018-03-24] MEDS ORDERED: AMPICILLIN NA/SULBACTAM NA 1.5 GM VIAL ONE ×3 (02:46→15:09)
[2018-03-24] MEDS ORDERED: SODIUM CHLORIDE 100 ML IVPB ONE ×2 (02:47→15:09)
[2018-03-24 08:57] LABS: ALK PHOS 67 U/L (45-117); ANION GAP 7 (8-16); BLOOD UREA NITROGEN 13 mg/dL (7-18); CALCIUM 7.2 mg/dL (8.5-10.1); CHLORIDE 113 mmol/L (98-107); CO2 23 mmol/L (21-32); CREATININE 0.5 mg/dL (0.7-1.3); GLUCOSE,RANDOM 97 mg/dL (74-106); MAGNESIUM 1.6 mg/dL (1.8-2.4); PHOSPHOROUS 2.4 mg/dL (2.5-4.9); POTASSIUM 3.6 mmol/L (3.5-5.1); SGOT/AST 35 U/L (15-37); SGPT/ALT 34 U/L (12-78); SODIUM 143 mmol/L (136-145); TOT PROT 6.2 g/dl (6.4-8.2)
[2018-03-24 09:04] LABS: HEMATOCRIT 28.9 % (35.4-49); HEMOGLOBIN 10.5 GM/dL (11.7-16.9); MCH 36.2 pg (25.7-33.7); MCHC 36.2 g/dl (32.0-35.9); MEAN CELL VOLUME 99.9 fl (80-96); PLATELET COUNT 79 K/MM3 (134-434); RBC 2.89 M/mm3 (4.00-5.60); RDW 13.3 % (11.9-15.9); WHITE BLOOD COUNT 4.6 K/mm3 (4.0-10.0)
[2018-03-24] MEDS ORDERED: PT OWN MED DRAWER 7, Y5N ONE (10:51)
[2018-03-24] MEDS: AMPICILLIN NA/SULBACTAM NA 1.5 GM in SODIUM CHLORIDE 100 ML IVPB SCH ×2 (10:55→15:14)
[2018-03-24] MEDS: THIAMINE HCL 200 MG/2 ML VIAL IVPB SCH (10:56)
[2018-03-24] MEDS: RIFAXIMIN 550 MG TABLET (UD) PO SCH ×2 (10:56→22:00)
--- NOTE | 2018-03-24 14:35 | PN ---
Physical Exam: SUBJECTIVE: No events overnight. No new complaints. OBJECTIVE: Vital Signs Period Temp Pulse Resp BP Sys/Low Pulse Ox Last 24 Hr 98.3 F-99.1 F 60-64 18-20 117-121/57-68 100 GENERAL: NAD, sleepy, alert and oriented x3 HEENT: NC/AT, ROMINA, sclera slgithly icteric at lower portions of eyes without injections, MMM NECK: Soft, no JVD LUNGS: Coarse diminished breath sounds b/l base. No wheezes, and no crackles. No accessory muscle use. On RA 97% HEART: RRR, normal S1 and S2 without murmur ABDOMEN: Soft, not distended, normoactive bowel sounds, no agitation to palpation, no guarding. No hepatomegaly by percussion EXTREMITIES: 2+ DP pulses, warm, No peripheral edema. SKIN: Warm, dry, no rashes or lesions noted Laboratory Results - last 24 hr 03/20/18 03/24/18 03/24/18 13:00 06:00 08:00 WBC 4.6 RBC 2.89 L Hgb 10.5 L Hct 28.9 L MCV 99.9 H MCH 36.2 H MCHC 36.2 H RDW 13.3 Plt Count 79 L MPV 8.0 Sodium 143 Potassium 3.6 Chloride 113 H Carbon Dioxide 23 Anion Gap 7 L BUN 13 Creatinine 0.5 L Creat Clearance w eGFR > 60 Random Glucose 97 Calcium 7.2 L Phosphorus 2.4 L D Magnesium 1.6 L Total Bilirubin 2.0 H D AST 35 ALT 34 Alkaline Phosphatase 67 Total Protein 6.2 L Albumin 2.0 L MDMA & Metabolite Negative Active Medications Generic Name Dose Route Start Last Admin Trade Name Freq PRN Reason Stop Dose Admin Sodium Chloride 1,000 mls @ 100 mls/hr 03/20/18 18:45 03/24/18 00:50 Normal Saline - IV 100 mls/hr ASDIR KAYLIE Administration Ampicillin Sodium/Sulbactam 100 mls @ 200 mls/hr 03/21/18 09:00 03/24/18 10: 55 Sodium 1.5 gm/ Sodium Chloride IVPB 200 mls/hr Q6H-IV KAYLIE Administration Lactulose 30 gm 03/21/18 22:00 03/23/18 21:38 Cephulac (Oral Use) PO 30 gm TID KAYLIE Administration Rifaximin 550 mg 03/21/18 22:00 03/24/18 10:56 Xifaxan - PO 550 mg BID KAYLIE Administration Thiamine HCl 200 mg 03/20/18 20:00 03/24/18 10:56 Vitamin B1 Injection - IVPB 200 mg DAILY KAYLIE Administration ASSESSMENT/PLAN: 1) Hepatic encephalopathy --Resolved --AMS related to hepatic encephalopathy --Aspiration precautions: HOB elevated 30* --Head CT previously negative --UTOX repeat negative for MDMA --Buproprion has been sometimes linked to false positivity and may be at play here 2) Cirrhosis --Noted on CT scan --Dr. Wolfe consulted --Continue Rifaximine 550mg PO if able --Will eventually need EGD when stable for variceal assessment --Hep B core Ab, IGM ordered for assessment of acute infection --Hep C Ab pending 3) LLL PNA --Possibly aspiration etiology --Blood and urine culture f/u --ID on board: Unasyn 1.5gm q6h IV; no need for Bactrim coverage at this time. --Lactic acidosis trending down 4) HIV --CD4 count 616 --Pt in 2017 stopped HAART therapy 5) Obstructing Nephrolithiasis with hydroneprhosis --Confirmed with CT scan --RUQ US for assessment of hydronephrosis --If there will reconsult urology now that acute AMS is resolved 6) Cholithiasis w/o cholecystectomy --Seen incidentally on CT --Monitor LFT's (trending down overall) --Will most likely recommend elective procedure once acute conditions are resolved; f/u surgery outpatient 7) Thrombocytopenia --Stable --Likely resultant from cirrhosis --Monitor --No active signs of bleeding 8) QTc Prolongation --QTc 507 --Avoid QTc prolonging medications FEN: Fluids: NS@100cc/hr Nutrition: Regular diet PPX: DVT - Held Heparin; monitor platelets Dispo: Med-surg continued Case discussed with Dr. Natanael Segura, DO - IM PGY-1 Visit type - Emergency Visit Emergency Visit: No - New Patient This patient is new to me today: No - Critical Care Critical Care patient: No
[2018-03-24] MEDS: LACTULOSE 20 GM/30 ML UDC (FOR ORAL USE ONLY) PO SCH ×2 (15:14→22:00)
--- NOTE | 2018-03-24 15:24 | PN ---
Progress Note, Physician History of Present Illness: Awake in bed Offers no complaints Denies chest pain/ dyspnea/ cough No c/o fever/ chills - Current Medication List Current Medications: Active Medications Sodium Chloride (Normal Saline -) 1,000 mls @ 100 mls/hr IV ASDIR [facility] Last Admin: 03/24/18 15:21 Dose: 100 mls/hr Ampicillin Sodium/Sulbactam (Sodium 1.5 gm/ Sodium Chloride) 100 mls @ 200 mls/ hr IVPB Q6H-IV [facility] Last Admin: 03/24/18 15:14 Dose: 200 mls/hr Lactulose (Cephulac (Oral Use)) 30 gm PO TID [facility] Last Admin: 03/24/18 15:14 Dose: 30 gm Rifaximin (Xifaxan -) 550 mg PO BID [facility] Last Admin: 03/24/18 10:56 Dose: 550 mg Thiamine HCl (Vitamin B1 Injection -) 200 mg IVPB DAILY [facility] Last Admin: 03/24/18 10:56 Dose: 200 mg - Objective Vital Signs: Vital Signs Temperature 98.6 F 03/24/18 13:23 Pulse Rate 64 03/24/18 13:23 Respiratory Rate 18 03/24/18 13:23 Blood Pressure 117/57 03/24/18 13:23 O2 Sat by Pulse Oximetry (%) 98 03/24/18 08:00 Constitutional: Yes: No Distress Eyes: Yes: Conjunctiva Clear Cardiovascular: Yes: Regular Rate and Rhythm, S1, S2 Respiratory: Yes: CTA Bilaterally Gastrointestinal: Yes: Normal Bowel Sounds, Soft. No: Tenderness Edema: No Labs: CBC, BMP 03/24/18 08:00 03/24/18 06:00 INR, PTT INR 1.46 (0.82-1.09) H 03/20/18 12:21 Assessment/Plan Probable aspiration pneumonia LLL Toxic metabolic encephalopathy HIV + CD4 616 Substitute Augmentin x 72hr
--- NOTE | 2018-03-24 15:31 | PN ---
Teaching Attending Note Name of Resident: Sadi Segura ATTENDING PHYSICIAN STATEMENT I saw and evaluated the patient. I reviewed the resident's note and discussed the case with the resident. I agree with the resident's findings and plan as documented. SUBJECTIVE: no fever or chills. cont to have BMs . no abd apin ,No N/V . OBJECTIVE: NAD, AAox3 CV: RRR. Lungs: CTAB Abd ; soft , NT, ND , NL BS Ext: no edema ASSESSMENT AND PLAN: 62 y/o man with h/o HIV, depression , h/o Suicidal attempt and other medical problems who presented with AMS and was found to have hepatic encephalopathy 1- Encephalopathy: likely hepatic encephalopathy, vs meds induced. now back to base line - cont lactulose - avoid sedatives - cont rifaximine - off wellbutrin 2- LLL PNA: likely aspiration: Augmentin x 3 more days 3- R hydronephrosis : - repeat US and kub to evaluate hydro and presence of stone. - strain all urines - if cont with hydro, then will re-invite urology to evaluate 4- Liver cirrhosis on CT , and esophageal and gastric varices. - needs EGD. will d/w GI about timing - Hepatitis serology pending 5-Thrombocytopenia: likely due to liver disease 6- HIV: CD4 616. f/u as out pt Dispo: HLOC
--- NOTE | 2018-03-24 16:37 | PN ---
Progress Note, Physician History of Present Illness: Awake and alert. No events. Comfortable. - Current Medication List Current Medications: Active Medications Amoxicillin/Clavulanate Potassium (Augmentin - 875mg Tablet) 1 tab PO BID@0800, 1730 [facility] Sodium Chloride (Normal Saline -) 1,000 mls @ 100 mls/hr IV ASDIR [facility] Last Admin: 03/24/18 15:21 Dose: 100 mls/hr Lactulose (Cephulac (Oral Use)) 30 gm PO TID [facility] Last Admin: 03/24/18 15:14 Dose: 30 gm Rifaximin (Xifaxan -) 550 mg PO BID [facility] Last Admin: 03/24/18 10:56 Dose: 550 mg Thiamine HCl (Vitamin B1 Injection -) 200 mg IVPB DAILY [facility] Last Admin: 03/24/18 10:56 Dose: 200 mg - Objective Vital Signs: Vital Signs Temperature 98.6 F 03/24/18 13:23 Pulse Rate 64 03/24/18 13:23 Respiratory Rate 18 03/24/18 13:23 Blood Pressure 117/57 03/24/18 13:23 O2 Sat by Pulse Oximetry (%) 98 03/24/18 08:00 Constitutional: Yes: No Distress, Calm Neurological: Yes: Alert, Lethargy Labs: CBC, BMP 03/24/18 08:00 03/24/18 06:00 INR, PTT INR 1.46 (0.82-1.09) H 03/20/18 12:21 Laboratory Last Values WBC 4.6 K/mm3 (4.0-10.0) 03/24/18 08:00 RBC 2.89 M/mm3 (4.00-5.60) L 03/24/18 08:00 Hgb 10.5 GM/dL (11.7-16.9) L 03/24/18 08:00 Hct 28.9 % (35.4-49) L 03/24/18 08:00 MCV 99.9 fl (80-96) H 03/24/18 08:00 MCH 36.2 pg (25.7-33.7) H 03/24/18 08:00 MCHC 36.2 g/dl (32.0-35.9) H 03/24/18 08:00 RDW 13.3 % (11.9-15.9) 03/24/18 08:00 Plt Count 79 K/MM3 (134-434) L 03/24/18 08:00 MPV 8.0 fl (7.5-11.1) 03/24/18 08:00 Absolute Neuts (auto) 3.5 # 03/21/18 06:00 Absolute Lymphs (auto) 1.9 x10E3/uL (0.7-3.1) 03/20/18 20:30 Neutrophils % 58.3 % (42.8-82.8) D 03/21/18 06:00 Lymphocytes % 34.3 % (8-40) D 03/21/18 06:00 Monocytes % 5.2 % (3.8-10.2) 03/21/18 06:00 Eosinophils % 1.7 % (0-4.5) D 03/21/18 06:00 Basophils % 0.5 % (0-2.0) 03/21/18 06:00 Nucleated RBC % 0 % (0-0) 03/21/18 06:00 Lymphocytes 25 % (Not Estab.) 03/20/18 20:30 Nucleated RBCs TNP 03/20/18 20:30 PT with INR 16.50 SEC (9.7-13.0) H 03/20/18 12:21 INR 1.46 (0.82-1.09) H 03/20/18 12:21 PTT (Actin FS) 38.8 SECONDS (26.9-34.4) H 03/20/18 12:21 VBG pH 7.41 (7.32-7.42) 03/20/18 12:36 POC VBG pCO2 37.0 mmHg (38-52) L 03/20/18 12:36 POC VBG pO2 30.0 mmHg (28-48) 03/20/18 12:36 Mixed VBG HCO3 23.0 meq/L (19-25) 03/20/18 12:36 Sodium 143 mmol/L (136-145) 03/24/18 06:00 Potassium 3.6 mmol/L (3.5-5.1) 03/24/18 06:00 Chloride 113 mmol/L (98-107) H 03/24/18 06:00 Carbon Dioxide 23 mmol/L (21-32) 03/24/18 06:00 Anion Gap 7 (8-16) L 03/24/18 06:00 BUN 13 mg/dL (7-18) 03/24/18 06:00 Creatinine 0.5 mg/dL (0.7-1.3) L 03/24/18 06:00 Creat Clearance w eGFR > 60 (>60) 03/24/18 06:00 Random Glucose 97 mg/dL (74-106) 03/24/18 06:00 Lactic Acid 1.9 mmol/L (0.0-2.0) 03/22/18 07:00 Calcium 7.2 mg/dL (8.5-10.1) L 03/24/18 06:00 Phosphorus 2.4 mg/dL (2.5-4.9) L D 03/24/18 06:00 Magnesium 1.6 mg/dL (1.8-2.4) L 03/24/18 06:00 Total Bilirubin 2.0 mg/dL (0.2-1.0) H D 03/24/18 06:00 Direct Bilirubin 1.2 mg/dL (0.0-0.2) H 03/21/18 15:30 AST 35 U/L (15-37) 03/24/18 06:00 ALT 34 U/L (12-78) 03/24/18 06:00 Alkaline Phosphatase 67 U/L (45-117) 03/24/18 06:00 Ammonia 39.3 umol/L (11-32) H 03/23/18 06:00 LD Total 241 U/L (87-241) 03/22/18 07:00 Creatine Kinase 107 IU/L (39-308) 03/20/18 12:21 CK-MB (CK-2) 2.15 ng/mL (0.5-3.6) 03/20/18 12:21 Troponin I < 0.02 ng/ml (0.00-0.05) 03/20/18 13:00 Total Protein 6.2 g/dl (6.4-8.2) L 03/24/18 06:00 Albumin 2.0 g/dl (3.4-5.0) L 03/24/18 06:00 Vitamin B12 1171 pg/ml (180-914) H 03/20/18 13:00 TSH 1.88 uIU/ml (0.358-3.74) 03/20/18 12:21 Urine Color Dkyellow 03/20/18 15:20 Urine Appearance Clear 03/20/18 15:20 Urine pH 7.0 (5.0-8.0) 03/20/18 15:20 Ur Specific [place] 1.013 (1.001-1.035) 03/20/18 15:20 Urine Protein Negative (NEGATIVE) 03/20/18 15:20 Urine Glucose (UA) Negative (NEGATIVE) 03/20/18 15:20 Urine Ketones Negative (NEGATIVE) 03/20/18 15:20 Urine Blood 1+ (NEGATIVE) H 03/20/18 15:20 Urine Nitrite Negative (NEGATIVE) 03/20/18 15:20 Urine Bilirubin Negative (<2.0 mg/dL) 03/20/18 15:20 Urine Urobilinogen 4.0 e.u/dl mg/dL (0.2-1.0) 03/20/18 15:20 Ur Leukocyte Esterase Negative (NEGATIVE) 03/20/18 15:20 Urine WBC (Auto) 2 /hpf (3-5) 03/20/18 15:20 Urine RBC (Auto) 28 /hpf (0-3) 03/20/18 15:20 Urine Bacteria Rare /hpf (NONE SEEN) 03/20/18 15:20 Salicylates <4.0 mg/dL 03/20/18 13:00 Opiates Screen Negative ng/ml (MOVTAC=252) 03/21/18 15:45 Methadone Screen Negative ng/ml (AXZDIJ=019) 03/21/18 15:45 Acetaminophen <2.0 ug/mL 03/20/18 13:00 Barbiturate Screen Negative ng/ml (YPUZJC=672) 03/21/18 15:45 Phencyclidine Screen Negative ng/ml (CUTOFF=25) 03/21/18 15:45 Ur Amphetamines Screen Negative ng/ml (KLUIWN=062) 03/21/18 15:45 MDMA (Ecstasy) Screen Negative ng/ml (CQEOEH=169) 03/21/18 15:45 MDMA & Metabolite Negative (Vfqteh=534) 03/20/18 13:00 Benzodiazepines Screen Negative ng/ml (OVPNBK=738) 03/21/18 15:45 Cocaine Screen Negative ng/ml (XDZDAB=674) 03/21/18 15:45 U Marijuana (THC) Screen Negative ng/ml (CUTOFF=50) 03/21/18 15:45 Alcohol, Quantitative < 5.0 mg/dL (0.0-5.0) 03/20/18 13:00 Absolute CD3 Count 1720 /uL (622-2402) 03/20/18 20:30 % CD3+ Lymphocytes 90.5 % (57.5-86.2) H 03/20/18 20:30 Absolute CD4 [place] 616 /uL (359-1519) 03/20/18 20:30 % CD4+ Lymphocyte 32.4 % (30.8-58.5) 03/20/18 20:30 CD4/CD8 Ratio 0.55 (0.92-3.72) L 03/20/18 20:30 % CD8+ Lymphocyte 58.8 % (12.0-35.5) H 03/20/18 20:30 Absolute CD8 Count 1117 /uL (109-897) H 03/20/18 20:30 RPR Titer Nonreactive (NONREACTIVE) 03/20/18 13:00 Blood Type A POSITIVE 03/20/18 12:21 Antibody Screen Negative 03/20/18 12:21 Problem List - Problems (1) Altered mental status Code(s): R41.82 - ALTERED MENTAL STATUS, UNSPECIFIED (2) Cirrhosis Code(s): K74.60 - UNSPECIFIED CIRRHOSIS OF LIVER Qualifiers: Hepatic cirrhosis type: unspecified hepatic cirrhosis Ascites presence: unspecified Qualified Code(s): K74.60 - Unspecified cirrhosis of liver (3) Left lower lobe pneumonia Code(s): J18.1 - LOBAR PNEUMONIA, UNSPECIFIED ORGANISM Qualifiers: Pneumonia type: due to unspecified organism Qualified Code(s): J18.1 - Lobar pneumonia, unspecified organism Assessment/Plan Continue current care. Avoid all non-essential medications, including sedatives. Daily liver chemistry, bili, ALP, PT, INR, CBC. The pt will need EGD for esophageal varices surveillance once acute issues have resolved. Follow HBV. HCV, HAV serology.
[2018-03-24] MEDS: AMOX TR/POT CLAV 875MG/125MG TABLETS (FP) PO SCH (16:44)
[2018-03-25] MEDS: SODIUM CHLORIDE 1,000 ML IV SCH (06:42)
[2018-03-25] MEDS: LACTULOSE 20 GM/30 ML UDC (FOR ORAL USE ONLY) PO SCH ×4 (06:44→14:53)
[2018-03-25 07:45] LABS: CHLORIDE 114 mmol/L (98-107); POTASSIUM 3.6 mmol/L (3.5-5.1); SODIUM 143 mmol/L (136-145)
[2018-03-25 07:57] LABS: ANION GAP 8 (8-16); BLOOD UREA NITROGEN 8 mg/dL (7-18); CO2 21 mmol/L (21-32); CREATININE 0.4 mg/dL (0.7-1.3); GLUCOSE,RANDOM 83 mg/dL (74-106); MAGNESIUM 1.4 mg/dL (1.8-2.4); PHOSPHOROUS 2.6 mg/dL (2.5-4.9)
[2018-03-25 08:47] LABS: HEMATOCRIT 28.7 % (35.4-49); HEMOGLOBIN 10.3 GM/dL (11.7-16.9); MCH 36.2 pg (25.7-33.7); MCHC 36.1 g/dl (32.0-35.9); MEAN CELL VOLUME 100.3 fl (80-96); MEAN PLT VOLUME 7.7 fl (7.5-11.1); PLATELET COUNT 71 K/MM3 (134-434); RBC 2.86 M/mm3 (4.00-5.60); RDW 13.7 % (11.9-15.9); WHITE BLOOD COUNT 3.7 K/mm3 (4.0-10.0)
--- NOTE | 2018-03-25 09:33 | PN ---
Progress Note, Physician History of Present Illness: Awake and alert. No events. Comfortable. - Current Medication List Current Medications: Active Medications Amoxicillin/Clavulanate Potassium (Augmentin - 875mg Tablet) 1 tab PO BID@0800, 1730 [facility] Last Admin: 03/24/18 16:44 Dose: 1 tab Bupropion HCl (Wellbutrin Xl -) 150 mg PO DAILY [facility] Sodium Chloride (Normal Saline -) 1,000 mls @ 100 mls/hr IV ASDIR [facility] Last Admin: 03/25/18 06:42 Dose: 100 mls/hr Lactulose (Cephulac (Oral Use)) 30 gm PO TID [facility] Last Admin: 03/25/18 06:44 Dose: 30 gm Rifaximin (Xifaxan -) 550 mg PO BID [facility] Last Admin: 03/24/18 22:00 Dose: 550 mg Thiamine HCl (Vitamin B1 Injection -) 200 mg IVPB DAILY [facility] Last Admin: 03/24/18 10:56 Dose: 200 mg - Objective Vital Signs: Vital Signs Temperature 98.1 F 03/25/18 06:00 Pulse Rate 65 03/25/18 08:14 Respiratory Rate 20 03/25/18 08:14 Blood Pressure 143/76 03/25/18 08:14 O2 Sat by Pulse Oximetry (%) 97 03/24/18 21:00 Constitutional: Yes: No Distress, Calm Eyes: Yes: Conjunctiva Clear Cardiovascular: Yes: Regular Rate and Rhythm Respiratory: Yes: Regular Gastrointestinal: Yes: Normal Bowel Sounds, Soft. No: Ascites, Distention, Melena, Rectal Bleeding, Tenderness, Vomiting Neurological: Yes: Alert Labs: CBC, BMP 03/25/18 06:10 03/25/18 06:10 INR, PTT INR 1.46 (0.82-1.09) H 03/20/18 12:21 Laboratory Last Values WBC 3.7 K/mm3 (4.0-10.0) L 03/25/18 06:10 RBC 2.86 M/mm3 (4.00-5.60) L 03/25/18 06:10 Hgb 10.3 GM/dL (11.7-16.9) L 03/25/18 06:10 Hct 28.7 % (35.4-49) L 03/25/18 06:10 MCV 100.3 fl (80-96) H 03/25/18 06:10 MCH 36.2 pg (25.7-33.7) H 03/25/18 06:10 MCHC 36.1 g/dl (32.0-35.9) H 03/25/18 06:10 RDW 13.7 % (11.9-15.9) 03/25/18 06:10 Plt Count 71 K/MM3 (134-434) L 03/25/18 06:10 MPV 7.7 fl (7.5-11.1) 03/25/18 06:10 Absolute Neuts (auto) 3.5 # 03/21/18 06:00 Absolute Lymphs (auto) 1.9 x10E3/uL (0.7-3.1) 03/20/18 20:30 Neutrophils % 58.3 % (42.8-82.8) D 03/21/18 06:00 Lymphocytes % 34.3 % (8-40) D 03/21/18 06:00 Monocytes % 5.2 % (3.8-10.2) 03/21/18 06:00 Eosinophils % 1.7 % (0-4.5) D 03/21/18 06:00 Basophils % 0.5 % (0-2.0) 03/21/18 06:00 Nucleated RBC % 0 % (0-0) 03/21/18 06:00 Lymphocytes 25 % (Not Estab.) 03/20/18 20:30 Nucleated RBCs TNP 03/20/18 20:30 PT with INR 16.50 SEC (9.7-13.0) H 03/20/18 12:21 INR 1.46 (0.82-1.09) H 03/20/18 12:21 PTT (Actin FS) 38.8 SECONDS (26.9-34.4) H 03/20/18 12:21 VBG pH 7.41 (7.32-7.42) 03/20/18 12:36 POC VBG pCO2 37.0 mmHg (38-52) L 03/20/18 12:36 POC VBG pO2 30.0 mmHg (28-48) 03/20/18 12:36 Mixed VBG HCO3 23.0 meq/L (19-25) 03/20/18 12:36 Sodium 143 mmol/L (136-145) 03/25/18 06:10 Potassium 3.6 mmol/L (3.5-5.1) 03/25/18 06:10 Chloride 114 mmol/L (98-107) H 03/25/18 06:10 Carbon Dioxide 21 mmol/L (21-32) 03/25/18 06:10 Anion Gap 8 (8-16) 03/25/18 06:10 BUN 8 mg/dL (7-18) D 03/25/18 06:10 Creatinine 0.4 mg/dL (0.7-1.3) L 03/25/18 06:10 Creat Clearance w eGFR > 60 (>60) 03/24/18 06:00 Random Glucose 83 mg/dL (74-106) 03/25/18 06:10 Lactic Acid 1.9 mmol/L (0.0-2.0) 03/22/18 07:00 Calcium 7.0 mg/dL (8.5-10.1) L 03/25/18 06:10 Phosphorus 2.6 mg/dL (2.5-4.9) 03/25/18 06:10 Magnesium 1.4 mg/dL (1.8-2.4) L 03/25/18 06:10 Total Bilirubin 2.0 mg/dL (0.2-1.0) H D 03/24/18 06:00 Direct Bilirubin 1.2 mg/dL (0.0-0.2) H 03/21/18 15:30 AST 35 U/L (15-37) 03/24/18 06:00 ALT 34 U/L (12-78) 03/24/18 06:00 Alkaline Phosphatase 67 U/L (45-117) 03/24/18 06:00 Ammonia 39.3 umol/L (11-32) H 03/23/18 06:00 LD Total 241 U/L (87-241) 03/22/18 07:00 Creatine Kinase 107 IU/L (39-308) 03/20/18 12:21 CK-MB (CK-2) 2.15 ng/mL (0.5-3.6) 03/20/18 12:21 Troponin I < 0.02 ng/ml (0.00-0.05) 03/20/18 13:00 Total Protein 6.2 g/dl (6.4-8.2) L 03/24/18 06:00 Albumin 2.0 g/dl (3.4-5.0) L 03/24/18 06:00 Vitamin B12 1171 pg/ml (180-914) H 03/20/18 13:00 TSH 1.88 uIU/ml (0.358-3.74) 03/20/18 12:21 Urine Color Dkyellow 03/20/18 15:20 Urine Appearance Clear 03/20/18 15:20 Urine pH 7.0 (5.0-8.0) 03/20/18 15:20 Ur Specific [place] 1.013 (1.001-1.035) 03/20/18 15:20 Urine Protein Negative (NEGATIVE) 03/20/18 15:20 Urine Glucose (UA) Negative (NEGATIVE) 03/20/18 15:20 Urine Ketones Negative (NEGATIVE) 03/20/18 15:20 Urine Blood 1+ (NEGATIVE) H 03/20/18 15:20 Urine Nitrite Negative (NEGATIVE) 03/20/18 15:20 Urine Bilirubin Negative (<2.0 mg/dL) 03/20/18 15:20 Urine Urobilinogen 4.0 e.u/dl mg/dL (0.2-1.0) 03/20/18 15:20 Ur Leukocyte Esterase Negative (NEGATIVE) 03/20/18 15:20 Urine WBC (Auto) 2 /hpf (3-5) 03/20/18 15:20 Urine RBC (Auto) 28 /hpf (0-3) 03/20/18 15:20 Urine Bacteria Rare /hpf (NONE SEEN) 03/20/18 15:20 Salicylates <4.0 mg/dL 03/20/18 13:00 Opiates Screen Negative ng/ml (HMXQYF=576) 03/21/18 15:45 Methadone Screen Negative ng/ml (KGUFNO=695) 03/21/18 15:45 Acetaminophen <2.0 ug/mL 03/20/18 13:00 Barbiturate Screen Negative ng/ml (RXHVVW=072) 03/21/18 15:45 Phencyclidine Screen Negative ng/ml (CUTOFF=25) 03/21/18 15:45 Ur Amphetamines Screen Negative ng/ml (WCIULG=616) 03/21/18 15:45 MDMA (Ecstasy) Screen Negative ng/ml (BXCZLN=462) 03/21/18 15:45 MDMA & Metabolite Negative (Bhbovs=436) 03/20/18 13:00 Benzodiazepines Screen Negative ng/ml (QOKILY=167) 03/21/18 15:45 Cocaine Screen Negative ng/ml (ELULTU=345) 03/21/18 15:45 U Marijuana (THC) Screen Negative ng/ml (CUTOFF=50) 03/21/18 15:45 Alcohol, Quantitative < 5.0 mg/dL (0.0-5.0) 03/20/18 13:00 Absolute CD3 Count 1720 /uL (622-2402) 03/20/18 20:30 % CD3+ Lymphocytes 90.5 % (57.5-86.2) H 03/20/18 20:30 Absolute CD4 [place] 616 /uL (359-1519) 03/20/18 20:30 % CD4+ Lymphocyte 32.4 % (30.8-58.5) 03/20/18 20:30 CD4/CD8 Ratio 0.55 (0.92-3.72) L 03/20/18 20:30 % CD8+ Lymphocyte 58.8 % (12.0-35.5) H 03/20/18 20:30 Absolute CD8 Count 1117 /uL (109-897) H 03/20/18 20:30 RPR Titer Nonreactive (NONREACTIVE) 03/20/18 13:00 Blood Type A POSITIVE 03/20/18 12:21 Antibody Screen Negative 03/20/18 12:21 Problem List - Problems (1) Altered mental status Code(s): R41.82 - ALTERED MENTAL STATUS, UNSPECIFIED (2) Cirrhosis Code(s): K74.60 - UNSPECIFIED CIRRHOSIS OF LIVER Qualifiers: Hepatic cirrhosis type: unspecified hepatic cirrhosis Ascites presence: unspecified Qualified Code(s): K74.60 - Unspecified cirrhosis of liver (3) Left lower lobe pneumonia Code(s): J18.1 - LOBAR PNEUMONIA, UNSPECIFIED ORGANISM Qualifiers: Pneumonia type: due to unspecified organism Qualified Code(s): J18.1 - Lobar pneumonia, unspecified organism Assessment/Plan Continue current care. Avoid all non-essential medications, including sedatives. Daily liver chemistry, bili, ALP, PT, INR, CBC. Plan EGD. Follow HBV. HCV, HAV serology.
[2018-03-25] MEDS: AMOX TR/POT CLAV 875MG/125MG TABLETS (FP) PO SCH ×2 (09:37→17:16)
[2018-03-25] MEDS: AMPICILLIN NA/SULBACTAM NA 1.5 GM in SODIUM CHLORIDE 100 ML IVPB SCH (10:15)
[2018-03-25] MEDS: THIAMINE HCL 200 MG/2 ML VIAL IVPB SCH (11:41)
[2018-03-25] MEDS: RIFAXIMIN 550 MG TABLET (UD) PO SCH (11:41)
--- NOTE | 2018-03-25 18:34 | PN ---
Teaching Attending Note Name of Resident: Sadi Segura ATTENDING PHYSICIAN STATEMENT I saw and evaluated the patient. I reviewed the resident's note and discussed the case with the resident. I agree with the resident's findings and plan as documented. SUBJECTIVE: No fever or chills. No abd pain. OBJECTIVE: NAD, AAox3 CV: RRR. Lungs: CTAB Abd ; soft , NT, ND , NL BS Ext: no edema ASSESSMENT AND PLAN: 62 y/o man with h/o HIV, depression , h/o Suicidal attempt and other medical problems who presented with AMS and was found to have hepatic encephalopathy 1- Encephalopathy: likely hepatic encephalopathy, in the setting of wellbutrin use . - cont lactulose - avoid sedatives. will not resume wellbutrin as out pt until he follows. another agent might needs to be started - cont rifaximine after dc 2- LLL PNA: likely aspiration: Augmentin x 2 more days 3- R hydronephrosis : - repeat US cont to show same mod hydro. this was d/w uro by equine intern: Recs for out t f/u as this stone might pass. if not stent placement as out pt - strain all urines 4- Liver cirrhosis on CT , and esophageal and gastric varices. - needs EGD .. d/w GI , will plan for out pt - Hepatitis serology pending to be followed 5-Thrombocytopenia: likely due to liver disease 6- HIV: CD4 616. f/u as out pt. Dispo: Dc home today. d/w patient and family who understand importance of all follow ups
--- NOTE | 2018-03-25 19:03 | DS ---
Physical Exam: SUBJECTIVE: Patient seen and examined OBJECTIVE: Vital Signs Period Temp Pulse Resp BP Sys/Low Pulse Ox Last 24 Hr 98.1 F-98.8 F 64-65 16-20 109-143/61-76 97-98 PHYSICAL EXAM GENERAL: The patient is awake, alert, and fully oriented, in no acute distress. HEAD: Normal with no signs of trauma. EYES: PERRL, extraocular movements intact, sclera anicteric, conjunctiva clear. ENT: Ears normal, nares patent, oropharynx clear without exudates, moist mucous membranes. NECK: Trachea midline, full range of motion, supple. LUNGS: Breath sounds equal, clear to auscultation bilaterally, no wheezes, no crackles, no accessory muscle use. HEART: Regular rate and rhythm, S1, S2 without murmur, rub or gallop. ABDOMEN: Soft, nontender, nondistended, normoactive bowel sounds, no guarding, no rebound, no hepatosplenomegaly, no masses. EXTREMITIES: 2+ pulses, warm, well-perfused, no edema. NEUROLOGICAL: Cranial nerves II through XII grossly intact. Normal speech, gait not observed. PSYCH: Normal mood, normal affect. SKIN: Warm, dry, normal turgor, no rashes or lesions noted. LABS Laboratory Results - last 24 hr 03/25/18 03/25/18 06:10 06:10 WBC 3.7 L RBC 2.86 L Hgb 10.3 L Hct 28.7 L MCV 100.3 H MCH 36.2 H MCHC 36.1 H RDW 13.7 Plt Count 71 L MPV 7.7 Sodium 143 Potassium 3.6 Chloride 114 H Carbon Dioxide 21 Anion Gap 8 BUN 8 D Creatinine 0.4 L Random Glucose 83 Calcium 7.0 L Phosphorus 2.6 Magnesium 1.4 L HOSPITAL COURSE: Date of Admission:03/20/18 Date of Discharge: 03/25/18 Discharge Summary Reason For Visit: L LOWER LOBE PNEUMONIA Current Active Problems Cirrhosis (Acute) Left lower lobe pneumonia (Acute) Prolonged QT interval (Acute) Right ureteral calculus (Acute) HIV (human immunodeficiency virus infection) (Chronic) Condition: Improved - Instructions Diet, Activity, Other Instructions: You were seen here for your altered mental status. You were found to have a high ammonia level due to some liver damage seen. You were given lactulose which helped to take the ammonia out. In addition you had a kidney stone with some backed up water to your kidney as a result. Dr. Butler was consulted who recommended to follow him in his clinic next week MEDICATIONS: Please continue to take your Rifaximin 550mg TWICE DAILY for your cirrhosis Please also continue to take Lactulose 30gm up to THREE TIMES per day, however you can cut back on the frequency as long as you have 3 to 4 bowel movements per day Please take Augmentin 875mg TWICE daily for two more days for your pneumonia as infection doctors have recommended --These new medications were sent to your [facility] pharmacy already Please STOP your Buproprion as you have been taking before your hospital stay Please strain your urine to look for stones in case you pass your kidney stone normally. Please refrain from drinking alcohol. Please watch for bleeding in your stool and your vomit as you may be prone to bleeding from your liver disease FOLLOW-UPs: Please see Dr. Butler for your kidney stone this coming up week. If you develop any back pain, abdomen, difficulty urinating meaning any decreased flow or inability to urinate please call your doctor or go to the ER for further evaluation Please see Dr. Wolfe (GI) for a upper endoscopy (scope of your esophagus and stomach) to assess some blood vessels that may be enlarged from your liver problem within 2 weeks. --Some of your blood levels are pending regarding your liver. Please follow-up with Dr. Wolfe for these levels as well.( hepatitis serlogy ) Please follow-up with your infection doctors for treatment of your HIV . As always, you should follow-up with your primary care doctor to update them on your medical condition. Referrals: Alf Paz MD [Staff Physician] - 2 Weeks Lionel Wolfe MD [Staff Physician] - 2 Weeks ON STAFF,NOT [Primary Care Provider] - 2 Weeks Mario Butler MD [Staff Physician] - 1 Week Disposition: HOME - Home Medications Comprehensive Discharge Medication List: Ambulatory Orders Amox-Tr/K Cl [Augmentin - 875Mg Tablet] 1 tab PO BID #4 tablet 03/25/18 Lactulose (Oral Use) [Cephulac -] 30 gm PO TID #90 udc 03/25/18 Rifaximin [Xifaxan -] 550 mg PO BID #60 tablet 03/25/18 Thiamine HCl 250 mg PO DAILY #30 tablet 03/25/18
[2018-03-25 19:08] VITALS: BP 131/78; PULSE 69; TEMP 99.2
[2018-03-26 06:06] LABS: HEPATITIS B CORE ANTIBODY,IGM Negative (Negative)
[2018-03-26 16:13] LABS: HBSAG SCREEN Negative (Negative); HEP A AB, IGM Negative (Negative); HEP B CORE AB, TOT Negative (Negative)
== END 2018-03-25 19:38 | disposition home or self-care (01) | DRG 279 ==
LOC: JER 11:28 → JERBED 18:07 → J6S 20:07
PROVIDERS: ADMIT Internal Medicine; ATTEND Internal Medicine
DX: K72.90 Hepatic failure, unspecified without coma (principal); K74.60 Unspecified cirrhosis of liver; J69.0 Pneumonitis due to inhalation of food and vomit; I86.4 Gastric varices; K80.20 Calculus of gallbladder without cholecystitis without obstruction; N13.2 Hydronephrosis with renal and ureteral calculous obstruction; Z21 Asymptomatic human immunodeficiency virus [HIV] infection status; D69.6 Thrombocytopenia, unspecified; E80.6 Other disorders of bilirubin metabolism; I45.81 Long QT syndrome; G92 Toxic encephalopathy; I85.00 Esophageal varices without bleeding; E87.6 Hypokalemia; E83.42 Hypomagnesemia; R41.82 Altered mental status, unspecified; F32.9 Major depressive disorder, single episode, unspecified; T43.625A Adverse effect of amphetamines, initial encounter; Y92.098 Other place in other non-institutional residence as the place of occurrence of the external cause
CPT/HCPCS: 36415; 70450-TC; 71045-TC-FY; 74018-TC-FY; 74177-TC; 76775-TC; 80048; 80053; 80307; 81003; 81015; 82140; 82248; 82550; 82553; 82607; 82803; 83605; 83615; 83735; 84100; 84443; 84484; 85025; 85027; 85610; 85730; 86359; 86360; 86593; 86704; 86705; 86706; 86708; 86850; 86900; 86901; 87040; 87086; 87340; 87899; 93005; 93010; 97116-GP; 97162-GP; 99283-25; G0480; J1644; J7030